=== PATIENT | male | born 1995 | race African-American/Black ===

== ENCOUNTER 2019-02-17 12:19 | Emergency (ER) | payer OTHER ==
[~2019-02-17] VITALS: Ht 188 cm; Wt 138.3 kg
--- NOTE | 2019-02-17 12:56 | PHYS DOC ---
Past Medical History Past Medical History: No Pertinent History Past Surgical History: No Surgical History Alcohol Use: None Drug Use: None Adult General Chief Complaint Chief Complaint: HYPERGLYCEMIA HPI HPI Patient is a 23-year-old previously healthy male who presents with elevated blood sugar. Patient states for the last week he's noticed that he is had polyuria. 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 He does not think he's been drinking any more fluid than usual. He denies any fever chills or sweats. He's had no other recent illnesses. He denies any nausea or vomiting. He does not know of any childhood type I diabetics in his family. He does have some type II diabetics in older relatives.[] Review of Systems Review of Systems Constitutional: Denies fever or chills [] Eyes: Denies change in visual acuity, redness, or eye pain [] HENT: Denies nasal congestion or sore throat [] Respiratory: Denies cough or shortness of breath [] Cardiovascular: No additional information not addressed in HPI [] GI: Denies abdominal pain, nausea, vomiting, bloody stools or diarrhea [] : Denies dysuria or hematuria [] Musculoskeletal: Denies back pain or joint pain [] Integument: Denies rash or skin lesions [] Neurologic: Denies headache, focal weakness or sensory changes [] Endocrine: Reports polyuria[] All other systems were reviewed and found to be within normal limits, except as documented in this note. Allergies Allergies Allergies Coded Allergies Type Severity Reaction Last Updated Verified No Known Drug Allergies 02/17/19 No Physical Exam Physical Exam Constitutional: Well developed, well nourished, no acute distress, non-toxic appearance, obese. [] HENT: Normocephalic, atraumatic, bilateral external ears normal, oropharynx moist, no oral exudates, nose normal. [] Eyes: PERRLA, EOMI, conjunctiva normal, no discharge. [] Neck: Normal range of motion, no tenderness, supple, no stridor. [] Cardiovascular:Heart rate regular rhythm, no murmur [] Lungs & Thorax: Bilateral breath sounds clear to auscultation [] Abdomen: Bowel sounds normal, soft, no tenderness, no masses, no pulsatile masses. [] Skin: Warm, dry, no erythema, no rash. [] Back: No tenderness, no CVA tenderness. [] Extremities: No tenderness, no cyanosis, no clubbing, ROM intact, no edema. [] Neurologic: Alert and oriented X 3, normal motor function, normal sensory function, no focal deficits noted. [] Psychologic: Affect normal, judgement normal, mood normal. [] Current Patient Data Vital Signs Vital Signs Date Time Temp Pulse Resp B/P (MAP) Pulse Ox O2 Delivery O2 Flow Rate FiO2 02/17/19 12:30 97.7 92 18 175/84 (114) 98 Room Air 97.7 Lab Values Laboratory Tests Test 02/17/19 12:36 02/17/19 12:47 Glucose (Fingerstick) 369 mg/dL (70-99) H White Blood Count 4.9 x10^3/uL (4.0-11.0) Red Blood Count 5.35 x10^6/uL (4.30-5.70) Hemoglobin 14.9 g/dL (13.0-17.5) Hematocrit 44.3 % (39.0-53.0) Mean Corpuscular Volume 83 fL (79-100) Mean Corpuscular Hemoglobin 28 pg (25-35) Mean Corpuscular Hemoglobin Concent 34 g/dL (31-37) Red Cell Distribution Width 13.1 % (11.5-14.5) Platelet Count 271 x10^3/uL (140-400) Neutrophils (%) (Auto) 48 % (31-73) Lymphocytes (%) (Auto) 37 % (24-48) Monocytes (%) (Auto) 8 % (0-9) Eosinophils (%) (Auto) 7 % (0-3) H Basophils (%) (Auto) 1 % (0-3) Neutrophils # (Auto) 2.3 x10^3/uL (1.8-7.7) Lymphocytes # (Auto) 1.8 x10^3/uL (1.0-4.8) Monocytes # (Auto) 0.4 x10^3/uL (0.0-1.1) Eosinophils # (Auto) 0.3 x10^3/uL (0.0-0.7) Basophils # (Auto) 0.0 x10^3/uL (0.0-0.2) Sodium Level 134 mmol/L (136-145) L Potassium Level 4.2 mmol/L (3.5-5.1) Chloride Level 96 mmol/L (98-107) L Carbon Dioxide Level 26 mmol/L (21-32) Anion Gap 12 (6-14) Blood Urea Nitrogen 10 mg/dL (8-26) Creatinine 1.4 mg/dL (0.7-1.3) H Estimated GFR (Cockcroft-Gault) 76.7 Glucose Level 376 mg/dL (70-99) H Calcium Level 10.1 mg/dL (8.5-10.1) Laboratory Tests 02/17/19 12:47 Laboratory Tests 02/17/19 12:47 EKG EKG [] Radiology/Procedures Radiology/Procedures [] Course & Med Decision Making Course & Med Decision Making Pertinent Labs and Imaging studies reviewed. (See chart for details) [ED course: Patient is a 23-year-old male who I suspect by body habitus is a type II diabetic. I'll start him on metformin as an outpatient. I've encouraged him strongly to follow with primary care physician in the next 1-2 days.] Dragon Disclaimer Dragon Disclaimer This electronic medical record was generated, in whole or in part, using a voice recognition dictation system. Departure Departure Impression: Primary Impression: Diabetes mellitus Disposition: 01 HOME, SELF-CARE Condition: STABLE Referrals: UNKNOWN PCP NAME (PCP) Patient Instructions: Diabetes Meal Planning Guide, Diabetes and Exercise- SportsMed, Diabetes, FAQs, Form - Daily Diabetes Record, Gestational Diabetes Mellitus, Type 2 Diabetes Mellitus, Adult Additional Instructions: It is extremely important that you follow with her primary care physician in the next 5-7 days. It is a must that she take your medication as directed. Scripts Lisinopril (LISINOPRIL) 10 Mg Tablet 1 TAB PO DAILY, #90 TAB 1 Refill Prov: FRANCISCA ALBARADO DO 02/17/19 Metformin Hcl (METFORMIN HCL) 500 Mg Tablet 500 MG PO BIDWMEALS for ANTI-DIABETIC, #120 TAB 0 Refills Prov: FRANCISCA ALBARADO DO 02/17/19 Problem Qualifiers Primary Impression: Diabetes mellitus Diabetes mellitus type: type 2 Diabetes mellitus general contractor insulin use: without general contractor use Diabetes mellitus complication status: without complication Qualified Codes: E11.9 - Type 2 diabetes mellitus without complications FRANCISCA ALBARADO DO Feb 17, 2019 12:56
[2019-02-17 13:01] LABS: BASO % 1 % (0-3); EOS # 0.3 x10^3/uL (0.0-0.7); EOS % 7 % (0-3); HEMATOCRIT 44.3 % (39.0-53.0); HEMOGLOBIN 14.9 g/dL (13.0-17.5); LYMPH # 1.8 x10^3/uL (1.0-4.8); LYMPH % 37 % (24-48); MEAN CORPUSCULAR HEMOGLOBIN 28 pg (25-35); MEAN CORPUSCULAR HGB CONC 34 g/dL (31-37); MEAN CORPUSCULAR VOLUME 83 fL (79-100); MONO # 0.4 x10^3/uL (0.0-1.1); MONO % 8 % (0-9); NEUT # 2.3 x10^3/uL (1.8-7.7); NEUT % 48 % (31-73); PLATELET COUNT 271 x10^3/uL (140-400); RED BLOOD COUNT 5.35 x10^6/uL (4.30-5.70); RED CELL DISTRIBUTION WIDTH 13.1 % (11.5-14.5); WHITE BLOOD COUNT 4.9 x10^3/uL (4.0-11.0)
[2019-02-17 13:14] LABS: CALCIUM 10.1 mg/dL (8.5-10.1); CREATININE 1.4 mg/dL (0.7-1.3); GFR 76.7; POTASSIUM 4.2 mmol/L (3.5-5.1)
[2019-02-17 13:15] LABS: BILIRUBIN,URINE NEGATIVE (NEG); CLARITY,URINE CLEAR; COLOR,URINE YELLOW; NITRITE,URINE NEGATIVE (NEG); PROTEIN,URINE 30 mg/dL (NEG-TRACE)
[2019-02-17 13:22] LABS: BACTERIA,URINE 0 /HPF (0-FEW); RBC,URINE 0 /HPF (0-2); WBC,URINE 0 /HPF (0-4)
[2019-02-17] MEDS ORDERED: METF500T16 PO (13:23)
[2019-02-17] MEDS ORDERED: LISI10TA2 PO (13:23)
[2019-02-17 13:31] VITALS: BP 138/81
== END 2019-02-17 13:34 | disposition home or self-care (01) ==
LOC: ER 12:19
DX: E11.65 Type 2 diabetes mellitus with hyperglycemia (principal)
CPT/HCPCS: 36415; 80048; 81001; 82962; 85025; 99284

== ENCOUNTER 2019-03-08 10:48 | Emergency (ER) | payer OTHER ==
[~2019-03-08] VITALS: Ht 188 cm; Wt 138.3 kg
[~2019-03-08 10:48] MED LIST: LISI10TA2 PO; METF500T16 PO
[2019-03-08 11:10] VITALS: BP 138/81
--- NOTE | 2019-03-08 11:15 | PHYS DOC ---
Past Medical History Past Medical History: No Pertinent History Past Surgical History: No Surgical History Alcohol Use: None Drug Use: None Adult General Chief Complaint Chief Complaint: TOE PROBLEM [facility] HPI Patient is a 23 year old male who presents with right great toe pain. This been ongoing since yesterday, as the patient was working on his car and hit his great toe against cardiac. The patient rates his pain a 7 out of 10 in severity and states sharp and throbbing. The patient complains the toe with hydrogen peroxide after the incident, and had his toe wrapped. Review of Systems Review of Systems Constitutional: Denies fever or chills [] Eyes: Denies change in visual acuity, redness, or eye pain [] HENT: Denies nasal congestion or sore throat [] Respiratory: Denies cough or shortness of breath [] Cardiovascular: No additional information not addressed in HPI [] GI: Denies abdominal pain, nausea, vomiting, bloody stools or diarrhea [] : Denies dysuria or hematuria [] Musculoskeletal: R 1st digit pain. Integument: Denies rash or skin lesions [] Neurologic: Denies headache, focal weakness or sensory changes [] Endocrine: Denies polyuria or polydipsia [] Complete systems were reviewed and found to be within normal limits, except as documented in this note. Allergies Allergies Allergies Coded Allergies Type Severity Reaction Last Updated Verified No Known Drug Allergies 02/17/19 No Physical Exam Physical Exam Constitutional: Well developed, well nourished, no acute distress, non-toxic appearance. [] HENT: Normocephalic, atraumatic, bilateral external ears normal, oropharynx moist, no oral exudates, nose normal. [] Eyes: PERRLA, EOMI, conjunctiva normal, no discharge. [] Neck: Normal range of motion, no tenderness, supple, no stridor. [] Cardiovascular:Heart rate regular rhythm, no murmur [] Lungs & Thorax: Bilateral breath sounds clear to auscultation [] Abdomen: Bowel sounds normal, soft, no tenderness, no masses, no pulsatile masses. [] Skin: Warm, dry, no erythema, no rash. [] Back: No tenderness, no CVA tenderness. [] Extremities: R great toe bruising to toenail. Nail is attached with dry blood underneath. Neurologic: Alert and oriented X 3, normal motor function, normal sensory function, no focal deficits noted. [] Psychologic: Affect normal, judgement normal, mood normal. [] EKG EKG [] Radiology/Procedures Radiology/Procedures [] Course & Med Decision Making Course & Med Decision Making Pertinent Labs and Imaging studies reviewed. (See chart for details) Discussed with patient that the nail is bruised and is still attached although slightly loose at the top. Discussed continuing to keep wrapped and clean and let the bruise heel. Patient is agreeable to this plan. Dragon Disclaimer Dragon Disclaimer This electronic medical record was generated, in whole or in part, using a voice recognition dictation system. Departure Departure Impression: Primary Impression: Toe pain Disposition: HOME, SELF-CARE Condition: STABLE Referrals: NO PCP (PCP) Additional Instructions: Thank you for visiting [facility]. We appreciate you trusting us with your care. If any additional problems come up don't hesitate to return to visit us. Please follow up with your primary care provider so they can plan additional care if needed and know about the problem that you had. If symptoms worsen come back to the Emergency Department. Any concerning symptoms that start such as chest pain, shortness of air, weakness or numbness on one side of the body, running high fevers or any other concerning symptoms return to the ER. Problem Qualifiers Primary Impression: Toe pain Laterality: right Qualified Codes: M79.674 - Pain in right toe(s) KARL SETHI APRN Mar 08, 2019 11:15
== END 2019-03-08 11:30 | disposition home or self-care (01) ==
LOC: ER 10:48
DX: S90.211A Contusion of right great toe with damage to nail, initial encounter (principal); W22.8XXA Striking against or struck by other objects, initial encounter; Y93.89 Activity, other specified; Y92.89 Other specified places as the place of occurrence of the external cause; Y99.8 Other external cause status
CPT/HCPCS: 99281

== ENCOUNTER 2019-04-26 10:25 | Inpatient (IN) | payer OTHER ==
[~2019-04-26] VITALS: Ht 188 cm; Wt 109.3 kg
[2019-04-26] VITALS (7 sets, daily range): BP systolic 118–168; BP diastolic 67–95
[2019-04-26] MEDS ORDERED: INSULIN,REGULAR 150 UNIT DRIP 150 ML IV ONE (10:45)
[2019-04-26] MEDS ORDERED: MORPHINE SULFATE 2 MG/ML VIAL. IV ONE (10:45)
[2019-04-26] MEDS ORDERED: IV NORMAL SALINE 1000ML BAG 1,000 ML IV ONE ×4 (10:45→12:15)
--- NOTE | 2019-04-26 10:51 | PHYS DOC ---
Past Medical History Past Medical History: Diabetes-Type II Past Surgical History: No Surgical History Alcohol Use: None Drug Use: None Adult General HPI HPI Patient is a 23-year-old male who presents to the emergency department for evaluation. He was diagnosed with diabetes, type II, during an ER visit in January. He was started on metformin during the ER visit, and in January was switched to Januvia at his follow-up at [facility]. He states he has been taking the medication intermittently but not regularly. He reports polyuria and polydipsia over the past several weeks, and awakened yesterday morning with nausea and vomiting, and does have some rib and lower back pain today. He is noted to be tachycardic, appears dehydrated, and EMS reported a blood sugar that read "high". He denies any significant shortness of breath. He does have some pleuritic rib pain. He is noted to be Kussmaul breathing upon arrival. He has not had any diarrhea or abdominal pain. There are no alleviating or exacerbating factors to his symptoms otherwise. Review of Systems Review of Systems Constitutional: Denies fever or chills [] Eyes: Denies change in visual acuity, redness, or eye pain [] HENT: Denies nasal congestion or sore throat [] Respiratory: Denies cough or shortness of breath [] Cardiovascular: No additional information not addressed in HPI [] GI: Denies abdominal pain, bloody stools or diarrhea [] : Denies dysuria or hematuria [] Musculoskeletal: Denies back pain or joint pain, other than as noted in the history of present illness [] Integument: Denies rash or skin lesions [] Neurologic: Denies headache, focal weakness or sensory changes [] Endocrine: Reports polyuria and polydipsia [] All other systems were reviewed and found to be within normal limits, except as documented in this note. Current Medications Current Medications Current Medications Medications (Trade) Dose Ordered Sig/Osbaldo Start Time Stop Time Status Last Admin Dose Admin Insulin Human Regular 150 ml @ 0 mls/hr 1X ONCE 04/26/19 10:45 04/26/19 10:46 DC 04/26/19 11:00 7 MLS/HR Morphine Sulfate (Morphine Sulfate) 4 mg 1X ONCE 04/26/19 10:45 04/26/19 10:46 DC 04/26/19 11:20 4 MG Sodium Chloride 1,000 ml @ 1,000 mls/hr 1X ONCE 04/26/19 12:15 04/26/19 13:14 Allergies Allergies Allergies Coded Allergies Type Severity Reaction Last Updated Verified No Known Drug Allergies 02/17/19 No Physical Exam Physical Exam PHYSICAL EXAM: CONSTITUTIONAL: Well developed, well nourished HEAD: normocephalic, atraumatic EENT: PERRL, EOMI. Conjunctivae normal color, sclerae non-icteric; dry mucous membranes. NECK: Supple, non-tender; no meningismus. LUNGS: Lungs CTA, Kussmaul respirations noted. Normal air movement. HEART: Regular tachycardia, no murmur CHEST: No deformity; non-tender ABDOMEN: The abdomen is soft, and non-tender, no masses or bruits. EXTREM: Normal ROM; no deformity, no calf tenderness. Normal pulses palpable in all extremities. There is no pedal edema. SKIN: No rash; no diaphoresis NEURO: Alert; normal speech and cognition; CN's grossly intact; strength grossly intact without focal deficit. BACK: No CVA TTP.There is no bony tenderness to palpation of the thoracic or lumbar spine. Current Patient Data Vital Signs Vital Signs Date Time Temp Pulse Resp B/P (MAP) Pulse Ox O2 Delivery O2 Flow Rate FiO2 04/26/19 11:20 32 100 Room Air 04/26/19 10:30 97.5 142 153/98 (116) 97.5 Lab Values Laboratory Tests Test 04/26/19 10:50 White Blood Count 15.3 x10^3/uL (4.0-11.0) H Red Blood Count 6.09 x10^6/uL (4.30-5.70) H Hemoglobin 16.7 g/dL (13.0-17.5) Hematocrit 54.0 % (39.0-53.0) H Mean Corpuscular Volume 89 fL (79-100) Mean Corpuscular Hemoglobin 28 pg (25-35) Mean Corpuscular Hemoglobin Concent 31 g/dL (31-37) Red Cell Distribution Width 14.2 % (11.5-14.5) Platelet Count 269 x10^3/uL (140-400) Neutrophils (%) (Auto) 88 % (31-73) H Lymphocytes (%) (Auto) 6 % (24-48) L Monocytes (%) (Auto) 5 % (0-9) Eosinophils (%) (Auto) 0 % (0-3) Basophils (%) (Auto) 0 % (0-3) Neutrophils # (Auto) 13.4 x10^3/uL (1.8-7.7) H Lymphocytes # (Auto) 1.0 x10^3/uL (1.0-4.8) Monocytes # (Auto) 0.8 x10^3/uL (0.0-1.1) Eosinophils # (Auto) 0.0 x10^3/uL (0.0-0.7) Basophils # (Auto) 0.0 x10^3/uL (0.0-0.2) Segmented Neutrophils % 61 % (35-66) Band Neutrophils % 29 % (0-9) H Lymphocytes % 7 % (24-48) L Monocytes % 3 % (0-10) Platelet Estimate Adequate (ADEQUATE) Large Platelets Few D-Dimer (Megan) 0.40 ug/mlFEU (0.00-0.50) Sodium Level 126 mmol/L (136-145) L Potassium Level 6.2 mmol/L (3.5-5.1) *H Chloride Level 83 mmol/L (98-107) L Carbon Dioxide Level < 5 mmol/L (21-32) *L Anion Gap (6-14) Blood Urea Nitrogen 32 mg/dL (8-26) H Creatinine 2.7 mg/dL (0.7-1.3) H Estimated GFR (Cockcroft-Gault) 35.9 BUN/Creatinine Ratio 12 (6-20) Glucose Level 837 mg/dL (70-99) *H Calcium Level 10.1 mg/dL (8.5-10.1) Magnesium Level 2.6 mg/dL (1.8-2.4) H Total Bilirubin 0.7 mg/dL (0.2-1.0) Aspartate Amino Transferase (AST) 26 U/L (15-37) Alanine Aminotransferase (ALT) 49 U/L (16-63) Alkaline Phosphatase 119 U/L (46-116) H Troponin I Quantitative < 0.017 ng/mL (0.000-0.055) IY-Cnt-Q-Type Natriuretic Peptide 27 pg/mL (0-124) Total Protein 9.1 g/dL (6.4-8.2) H Albumin 4.5 g/dL (3.4-5.0) Albumin/Globulin Ratio 1.0 (1.0-1.7) Lipase 330 U/L (73-393) Acetone Level Sm pos (NEG) Laboratory Tests 04/26/19 10:50 Laboratory Tests 04/26/19 10:50 EKG EKG Sinus tachycardia at a rate of 143 beats for minute, normal axis, normal intervals, nonspecific ST/T changes are present with prominent/peaked T waves present.[] Radiology/Procedures Radiology/Procedures PROCEDURE: PORTABLE CHEST 1V Examination: PORTABLE CHEST 1V History: Hyperglycemia, chest pain Comparison/Correlation: None Findings: Portable upright frontal view of the chest was obtained. Heart size and pulmonary vessels are normal. No infiltrate or pleural effusion. No pneumothorax. Limited pulmonary infiltration noted. Bony structures are unremarkable. Impression: No active disease. [] Course & Med Decision Making Course & Med Decision Making Pertinent Labs and Imaging studies reviewed. (See chart for details) []CRITICAL CARE TIME: 45 Minutes, excluding any procedures and care of other patients. The patient's condition remains stable. I spoke with the hospitalist, who accepted the patient to the hospital for further evaluation and treatment. His hyperkalemia will be treated with IV hydration and insulin, and his renal dysfunction will be treated with aggressive IV hydration. The patient be admitted to the ICU. Dragon Disclaimer Dragon Disclaimer This electronic medical record was generated, in whole or in part, using a voice recognition dictation system. Departure Departure Impression: Primary Impression: Diabetic ketoacidosis Disposition: ADMITTED INPATIENT Admitting Physician: VANDANA Condition: CRITICAL Referrals: NO PCP (PCP) JESSICA DOWNING MD Apr 26, 2019 10:51
[2019-04-26 11:00] LABS: BASO % 0 % (0-3); EOS % 0 % (0-3); HEMOGLOBIN 16.7 g/dL (13.0-17.5); LYMPH % 6 % (24-48); MEAN CORPUSCULAR HEMOGLOBIN 28 pg (25-35); MEAN CORPUSCULAR HGB CONC 31 g/dL (31-37); MEAN CORPUSCULAR VOLUME 89 fL (79-100); MONO # 0.8 x10^3/uL (0.0-1.1); MONO % 5 % (0-9); NEUT # 13.4 x10^3/uL (1.8-7.7); NEUT % 88 % (31-73); PLATELET COUNT 269 x10^3/uL (140-400); RED BLOOD COUNT 6.09 x10^6/uL (4.30-5.70); RED CELL DISTRIBUTION WIDTH 14.2 % (11.5-14.5); WHITE BLOOD COUNT 15.3 x10^3/uL (4.0-11.0)
--- NOTE | 2019-04-26 11:17 | RAD ---
Examination: PORTABLE CHEST 1V History: Hyperglycemia, chest pain Comparison/Correlation: None Findings: Portable upright frontal view of the chest was obtained. Heart size and pulmonary vessels are normal. No infiltrate or pleural effusion. No pneumothorax. Limited pulmonary infiltration noted. Bony structures are unremarkable. Impression: No active disease. Electronically signed by: Maik Singh MD (04/26/2019 11:13 AM) [facility]
[2019-04-26 11:34] LABS: ALBUMIN 4.5 g/dL (3.4-5.0); ALK PHOS 119 U/L (46-116); ALT (SGPT) 49 U/L (16-63); AST (SGOT) 26 U/L (15-37); BLOOD UREA NITROGEN 32 mg/dL (8-26); BUN/CREATININE RATIO 12 (6-20); CALCIUM 10.1 mg/dL (8.5-10.1); CHLORIDE 83 mmol/L (98-107); CREATININE 2.7 mg/dL (0.7-1.3); GFR 35.9; LIPASE 330 U/L (73-393); MAGNESIUM 2.6 mg/dL (1.8-2.4); SODIUM 126 mmol/L (136-145); TOTAL BILIRUBIN 0.7 mg/dL (0.2-1.0); TOTAL PROTEIN 9.1 g/dL (6.4-8.2)
[2019-04-26 11:51] LABS: % BANDS 29 % (0-9); % LYMPHS 7 % (24-48); % MONOS 3 % (0-10); % SEGS 61 % (35-66); PLT ESTIMATE ADEQUATE (ADEQUATE)
[2019-04-26 12:00] LABS: GLUCOSE 837 mg/dL (70-99); POTASSIUM 6.2 mmol/L (3.5-5.1)
[2019-04-26 12:01] LABS: CARBON DIOXIDE < 5 mmol/L (21-32)
[2019-04-26 12:59] LABS: BASE EXCESS ABG -24 mmol/L (-3-3); HCO3 ABG 3 mmol/L (21-28); PO2 ABG 124 mmHg (85-108); SAT O2 ABG 97 % (92-99)
[2019-04-26 13:01] LABS: FIO2 ABG 21; PCO2 ABG < 15 mmHg (35-46)
[2019-04-26] MEDS ORDERED: cefTRIAXone IV Push 1 GM VIAL. IVP ONE (14:30)
--- NOTE | 2019-04-26 15:08 | HP ---
ADMIT DATE: 04/26/2019 CHIEF COMPLAINT: Polyuria, polydipsia, weakness, nausea, vomiting, weight loss. HISTORY OF PRESENT ILLNESS: The patient is a pleasant 23-year-old male who presented with the above chief complaints. Basically, he was recently diagnosed with new onset diabetes and was placed on some oral meds and told he really did not check his sugars and that he would be fine. He presents to our ER today. He appears to be in DKA. I discussed the case with ER physician. We are going to put him on a DKA protocol. His glucose is also 837 and he has elevated anion gap. PAST MEDICAL HISTORY: Recent diagnosis of new diabetes, noncompliance. ALLERGIES: None. FAMILY HISTORY: Diabetes. SOCIAL HISTORY: Does not drink, smoke or take drugs. He works at a [employer] on the [employer]. MEDICATIONS: Reviewed, please refer to the MRAD. REVIEW OF SYSTEMS: GENERAL: He complains of weight loss. SKIN: No bruising, hair changes or rashes. EYES: No blurred, double or loss of vision. NOSE AND THROAT: No history of nosebleeds, hoarseness or sore throat. HEART: No history of palpitations, chest pain or shortness of breath on exertion. LUNGS: Denies cough, hemoptysis, wheezing or shortness of breath. GASTROINTESTINAL: Denies changes in appetite, nausea, vomiting, diarrhea or constipation. GENITOURINARY: He complains of polyuria. NEUROLOGIC: Denies history of numbness, tingling, tremor or weakness. PSYCHIATRIC: No history of panic, anxiety or depression. ENDOCRINE: He complains of excessive thirst. EXTREMITIES: Denies muscle weakness, joint pain, pain on walking or stiffness. PHYSICAL EXAMINATION: VITALS: Within normal limits and are stable. GENERAL: No apparent distress. Alert and oriented. HEENT: Head is normocephalic, atraumatic, pupils were equally round and reactive to light and accommodation. NECK: Supple, no JVD, no thyromegaly was noted. LUNGS: Tachypneic. HEART: RRR, S1, S2 present. Peripheral pulses intact, no obvious murmurs were noted. ABDOMEN: Soft, nontender. Positive bowel sounds no organomegaly, normal bowel sounds. EXTREMITIES: Without any cyanosis, clubbing, or edema. Pedal pulses intact, Homans sign is negative. NEUROLOGIC: Normal speech, normal tone. A and O x3, moves all extremities, no obvious focal deficits. PSYCHIATRIC: Depressed and anxious. SKIN: No ulcerations or rashes, good skin turgor, no jaundice. VASCULAR: Good capillary refill, neurovascular bundle appears to be intact. LABORATORY DATA: White count is 15, hemoglobin 16, platelets 269. Electrolytes: Sodium 126, potassium 6.2, chloride 83, bicarbonate less than 5, BUN 32, creatinine 2.7, glucose 837. Troponin is 0. D-dimer 0.4. ABG shows a pH of 7.11. ASSESSMENT AND PLAN: Severe diabetic ketoacidosis with elevated anion gap metabolic acidosis, leukocytosis, dehydration, and weight loss. The patient has been admitted for DKA protocol. We will also give him IV antibiotics, IV fluids, IV insulin. ICU monitoring. Diabetic education. PROGNOSIS: Guarded. ANNALEE DOTSON DO DR: GIRISH/clement JOB#: [id number] / [id number]
[2019-04-26] MEDS ORDERED: INSULIN REGULAR VIAL 150 UNIT in 0.9 % SODIUM CHLORIDE 150ML 150 ML IV PRN (16:15)
[2019-04-26] MEDS ORDERED: POTASSIUM CHLORIDE 10MEQ 100 ML IV PRN ×3 (16:15)
--- NOTE | 2019-04-26 16:15 | NUR ---
Patient admitted to room 114 at 1545. Patient a/o, able to answer admission questions. No valuables on patient, besides cell phone. Patient's mom, girlfriend in hospital. RN called and spoke with Dr. Rich regarding DKA order set. Order received for Morphine 2mg Q2 hrs. Order received to start DKA protocol. New labs drawn-- awaiting results. Patient's GF, Diamante, at bedside. See assessments.
[2019-04-26 16:34] LABS: HEMATOCRIT 50.1 % (39.0-53.0); HEMOGLOBIN 15.8 g/dL (13.0-17.5); RED BLOOD COUNT 5.79 x10^6/uL (4.30-5.70); RED CELL DISTRIBUTION WIDTH 13.9 % (11.5-14.5); WHITE BLOOD COUNT 15.3 x10^3/uL (4.0-11.0)
[2019-04-26] MEDS ORDERED: MORPHINE SULFATE 2 MG/ML VIAL. ONE (16:37)
[2019-04-26] MEDS: IV NORMAL SALINE 1000ML BAG 1,000 ML IV SCH ×2 (16:41→20:07)
[2019-04-26 16:59] LABS: ALBUMIN 3.9 g/dL (3.4-5.0); ALBUMIN/GLOBULIN RATIO 0.8 (1.0-1.7); CREATININE 2.3 mg/dL (0.7-1.3); GFR 43.2; POTASSIUM 4.9 mmol/L (3.5-5.1); TOTAL BILIRUBIN 0.6 mg/dL (0.2-1.0); TOTAL PROTEIN 8.8 g/dL (6.4-8.2)
[2019-04-26] MEDS ORDERED: SITA100T PO (18:36)
--- NOTE | 2019-04-26 18:40 | NUR ---
RN called and spoke with Dr. Fairbanks-- notified of lab values, including criticals. Order received to continue to follow DKA protocol, no changes made. Repeat labs at 1999.
[2019-04-26 19:52] LABS: HEMATOCRIT 46.8 % (39.0-53.0); HEMOGLOBIN 15.3 g/dL (13.0-17.5); RED BLOOD COUNT 5.55 x10^6/uL (4.30-5.70); RED CELL DISTRIBUTION WIDTH 13.6 % (11.5-14.5); WHITE BLOOD COUNT 14.2 x10^3/uL (4.0-11.0)
[2019-04-26 20:08] LABS: ALBUMIN 3.7 g/dL (3.4-5.0); ALBUMIN/GLOBULIN RATIO 0.8 (1.0-1.7); CALCIUM 9.1 mg/dL (8.5-10.1); CREATININE 1.7 mg/dL (0.7-1.3); GFR 61.3; POTASSIUM 4.3 mmol/L (3.5-5.1); TOTAL BILIRUBIN 0.6 mg/dL (0.2-1.0); TOTAL PROTEIN 8.3 g/dL (6.4-8.2)
[2019-04-26] MEDS: SODIUM PHOSPHATE 10 MMOL in IV DEXTROSE 5% 250 ML IV SCH ×2 (20:30→21:25)
[2019-04-26] MEDS ORDERED: IV 1/2 NORMAL SALINE 1,000 ML IV PRN (20:30)
[2019-04-27] VITALS (10 sets, daily range): BP systolic 89–158; BP diastolic 38–94
[2019-04-27 00:47] LABS: CREATININE 1.6 mg/dL (0.7-1.3); GFR 65.7; MAGNESIUM 2.2 mg/dL (1.8-2.4); POTASSIUM 3.8 mmol/L (3.5-5.1)
[2019-04-27] MEDS: SODIUM PHOSPHATE 10 MMOL in IV DEXTROSE 5% 250 ML IV SCH (01:45)
[2019-04-27] MEDS: POTASSIUM CHLORIDE 10MEQ 100 ML IV SCH ×10 (01:46→17:43)
[2019-04-27] MEDS: IV DEXTROSE 5 %-0.45 % NACL 1,000 ML IV SCH ×3 (02:14→11:03)
[2019-04-27 05:39] LABS: CALCIUM 8.9 mg/dL (8.5-10.1); CREATININE 1.5 mg/dL (0.7-1.3); GFR 70.8; MAGNESIUM 2.1 mg/dL (1.8-2.4); PHOSPHORUS 1.8 mg/dL (2.6-4.7); POTASSIUM 3.6 mmol/L (3.5-5.1)
--- NOTE | 2019-04-27 06:12 | EKG ---
[facility] [address] [place] [address] Test Date: 2019-04-26 Test Time: 10:54:17 Pat Name: VU PATTON Department: Room: 114 1 Gender: M Ux Consultant: : 1995 Requested By: JESSICA DOWNING Order Number: [id number] Reading MD: Ming Zuluaga MD Measurements Intervals [place] Rate: 143 P: 21 MT: 114 QRS: 45 QRSD: 76 T: 49 QT: 278 QTc: 434 Interpretive Statements SINUS TACHYCARDIA Electronically Signed On 05-09-2019 12:50:01 CDT by Ming Zuluaga MD
[2019-04-27] MEDS ORDERED: SODIUM PHOSPHATE 20 MMOL in IV DEXTROSE 5% 250 ML IV ONE (06:15)
[2019-04-27] MEDS ORDERED: INSULIN REGULAR VIAL 150 UNIT in 0.9 % SODIUM CHLORIDE 150ML 150 ML IV PRN (06:30)
--- NOTE | 2019-04-27 10:26 | PDOC2 ---
CONSULT Date of Consult Date of Consult DATE: 04/27/19 TIME: 10:22 History of Present Illness Reason for Visit: THIS IS A 23 YR OLD WITH A DX OF DM. ADMITTED WITH RECENT COMPLAINTS OF WEAKNESS FOLLOWING DAYS OF INCREASED URINATION AND INCREASED THIRST. HAS NOT BEEN TAKING HIS MEDICATIONS REGULARLY. HAS ALSO HAD SOME NAUSEA AND VOMITING. ON ADMIT NOTED TO BE IN DKA WITH ETHAN, MET ACIDOSIS AND HYPERKALEMIA. ALSO NOTED TO BE TACHYPNE IC Past Medical History Endocrine: Diabetes Past Surgical History Past Surgical History NONE Current Problem List Problem List Problems Medical Problems: (1) Dehydration Status: Acute (2) Diabetic ketoacidosis Status: Acute Current Medications Current Medications Current Medications Sodium Chloride 1,000 ml @ 1,000 mls/hr 1X ONCE IV Last administered on 04/26/19at 11:00; Start 04/26/19 at 10:45; Stop 04/26/19 at 11:44; Status DC Sodium Chloride 1,000 ml @ 1,000 mls/hr 1X ONCE IV Last administered on 04/26/19at 11:56; Start 04/26/19 at 10:45; Stop 04/26/19 at 11:44; Status DC Insulin Human Regular 150 ml @ 0 mls/hr 1X ONCE IV Last administered on 04/26/19at 11:00; Start 04/26/19 at 10:45; Stop 04/26/19 at 10:46; Status DC Morphine Sulfate (Morphine Sulfate) 4 mg 1X ONCE IV Last administered on 04/26/19at 11:20; Start 04/26/19 at 10:45; Stop 04/26/19 at 10:46; Status DC Sodium Chloride 1,000 ml @ 1,000 mls/hr 1X ONCE IV Last administered on 04/26/19at 12:44; Start 04/26/19 at 12:00; Stop 04/26/19 at 12:59; Status DC Sodium Chloride 1,000 ml @ 1,000 mls/hr 1X ONCE IV Last administered on 04/26/19at 13:26; Start 04/26/19 at 12:15; Stop 04/26/19 at 13:14; Status DC Ceftriaxone Sodium (Rocephin) 1 gm Q24H IVP ; Start 04/27/19 at 15:00 Ceftriaxone Sodium (Rocephin) 1 gm ONCE ONCE IVP Last administered on 04/26/19at 15:02; Start 04/26/19 at 14:30; Stop 04/26/19 at 14:31; Status DC Sodium Chloride 1,000 ml @ 250 mls/hr Q4H IV Last administered on 04/26/19at 20:07; Start 04/26/19 at 16:12; Stop 04/26/19 at 23:58; Status DC Insulin Human Regular 150 unit/ Sodium Chloride 151.5 ml @ 0 mls/hr CONT PRN PRN IV PER PROTOCOL Last administered on 04/26/19at 20:31; Start 04/26/19 at 16:15; Stop 04/27/19 at 06:33; Status DC Potassium Chloride/Water 100 ml @ 100 mls/hr PRN Q1HR PRN IV SEE COMMENTS; Start 04/26/19 at 16:15 Potassium Chloride/Water 100 ml @ 100 mls/hr PRN Q1HR PRN IV SEE COMMENTS; Start 04/26/19 at 16:15 Potassium Chloride/Water 100 ml @ 100 mls/hr PRN Q1HR PRN IV SEE COMMENTS; Start 04/26/19 at 16:15 Morphine Sulfate (Morphine Sulfate) 2 mg STK-MED ONCE .ROUTE ; Start 04/26/19 at 16:37; Stop 04/26/19 at 16:37; Status DC Sodium Phosphate 10 mmol/Dextrose 253.3333 ml @ 61.688 m... Q4HRS IV Last administered on 04/27/19at 01:46; Start 04/26/19 at 20:30; Stop 04/27/19 at 03:59; Status DC Sodium Chloride 1,000 ml @ 250 mls/hr PRN Q4HRS PRN IV SEE I/O RECORD Last administered on 04/26/19at 20:31; Start 04/26/19 at 20:30; Stop 04/26/19 at 23:58; Status DC Dextrose/Sodium Chloride 1,000 ml @ 250 mls/hr Q4H IV Last administered on 04/27/19at 07:11; Start 04/27/19 at 00:00 Potassium Chloride/Water 100 ml @ 100 mls/hr Q1H IV Last administered on 04/27/19at 02:22; Start 04/27/19 at 01:15; Stop 04/27/19 at 03:14; Status DC Potassium Chloride/Water 100 ml @ 100 mls/hr Q1H IV Last administered on 04/27/19at 07:35; Start 04/27/19 at 06:15; Stop 04/27/19 at 10:14; Status DC Sodium Phosphate 20 mmol/Dextrose 256.6667 ml @ 64.167 m... 1X ONCE IV Last administered on 04/27/19at 06:31; Start 04/27/19 at 06:15; Stop 04/27/19 at 10:14; Status DC Insulin Human Regular 150 unit/ Sodium Chloride 151.5 ml @ 0 mls/hr CONT PRN IV SEE I/O RECORD; Start 04/27/19 at 06:30 Active Scripts Active Reported Januvia (Sitagliptin Phosphate) 100 Mg Tablet 1 Tab PO DAILY Allergies Allergies: Coded Allergies: No Known Drug Allergies (Unverified , 02/17/19) ROS General: YES: Fatigue, Malaise, Appetite PSYCHOLOGICAL ROS: YES: Anxiety Eyes: Yes Blurry vision HEENT: YES: Heacaches ALLERGY AND IMMUNOLOGY: YES: Seasonal Allergies Gastrointestinal: Yes Nausea, Yes Vomiting Genitourinary: YES Frequency Musculoskeletal: Yes Muscular Weakness Neurological: Yes Weakness Skin: Yes Dry Skin Physical Exam General: Alert, Oriented X3, Cooperative, No acute distress HEENT: Atraumatic, PERRLA, EOMI Lungs: Clear to auscultation Heart: Regular rate, Normal S1 Abdomen: Normal bowel sounds, Soft, No tenderness Extremities: No clubbing Skin: No rashes, No breakdown Neuro: Normal speech, Sensation intact MUSCULOSKELETAL: No joint tenderness, No deformity Vitals VITALS Vital Signs Date Time Temp Pulse Resp B/P (MAP) Pulse Ox O2 Delivery O2 Flow Rate FiO2 04/27/19 08:00 Room Air 04/27/19 06:00 105 15 140/82 (101) 04/27/19 04:00 99.2 99.2 04/26/19 17:30 98 Labs Labs Laboratory Tests Test 04/26/19 10:37 04/26/19 10:50 04/26/19 14:49 04/26/19 15:49 O2 Saturation 97 % (92-99) Arterial Blood pH 7.11 (7.35-7.45) Arterial Blood pCO2 at Patient Temp < 15 mmHg (35-46) Arterial Blood pO2 at Patient Temp 124 mmHg (85-108) Arterial Blood HCO3 3 mmol/L (21-28) Arterial Blood Base Excess -24 mmol/L (-3-3) FiO2 21 White Blood Count 15.3 x10^3/uL (4.0-11.0) Red Blood Count 6.09 x10^6/uL (4.30-5.70) Hemoglobin 16.7 g/dL (13.0-17.5) Hematocrit 54.0 % (39.0-53.0) Mean Corpuscular Volume 89 fL (79-100) Mean Corpuscular Hemoglobin 28 pg (25-35) Mean Corpuscular Hemoglobin Concent 31 g/dL (31-37) Red Cell Distribution Width 14.2 % (11.5-14.5) Platelet Count 269 x10^3/uL (140-400) Neutrophils (%) (Auto) 88 % (31-73) Lymphocytes (%) (Auto) 6 % (24-48) Monocytes (%) (Auto) 5 % (0-9) Eosinophils (%) (Auto) 0 % (0-3) Basophils (%) (Auto) 0 % (0-3) Neutrophils # (Auto) 13.4 x10^3/uL (1.8-7.7) Lymphocytes # (Auto) 1.0 x10^3/uL (1.0-4.8) Monocytes # (Auto) 0.8 x10^3/uL (0.0-1.1) Eosinophils # (Auto) 0.0 x10^3/uL (0.0-0.7) Basophils # (Auto) 0.0 x10^3/uL (0.0-0.2) Segmented Neutrophils % 61 % (35-66) Band Neutrophils % 29 % (0-9) Lymphocytes % 7 % (24-48) Monocytes % 3 % (0-10) Platelet Estimate Adequate (ADEQUATE) Large Platelets Few D-Dimer (Megan) 0.40 ug/mlFEU (0.00-0.50) Sodium Level 126 mmol/L (136-145) Potassium Level 6.2 mmol/L (3.5-5.1) Chloride Level 83 mmol/L (98-107) Carbon Dioxide Level < 5 mmol/L (21-32) Anion Gap (6-14) Blood Urea Nitrogen 32 mg/dL (8-26) Creatinine 2.7 mg/dL (0.7-1.3) Estimated GFR (Cockcroft-Gault) 35.9 BUN/Creatinine Ratio 12 (6-20) Glucose Level 837 mg/dL (70-99) Calcium Level 10.1 mg/dL (8.5-10.1) Magnesium Level 2.6 mg/dL (1.8-2.4) Total Bilirubin 0.7 mg/dL (0.2-1.0) Aspartate Amino Transf (AST/SGOT) 26 U/L (15-37) Alanine Aminotransferase (ALT/SGPT) 49 U/L (16-63) Alkaline Phosphatase 119 U/L (46-116) Troponin I Quantitative < 0.017 ng/mL (0.000-0.055) [id number]-Type Natriuretic Peptide 27 pg/mL (0-124) Total Protein 9.1 g/dL (6.4-8.2) Albumin 4.5 g/dL (3.4-5.0) Albumin/Globulin Ratio 1.0 (1.0-1.7) Lipase 330 U/L (73-393) Acetone Level Sm pos (NEG) Glucose (Fingerstick) 592 mg/dL (70-99) 487 mg/dL (70-99) Test 04/26/19 16:10 04/26/19 16:52 04/26/19 18:31 04/26/19 19:38 White Blood Count 15.3 x10^3/uL (4.0-11.0) Red Blood Count 5.79 x10^6/uL (4.30-5.70) Hemoglobin 15.8 g/dL (13.0-17.5) Hematocrit 50.1 % (39.0-53.0) Mean Corpuscular Volume 87 fL (79-100) Mean Corpuscular Hemoglobin 27 pg (25-35) Mean Corpuscular Hemoglobin Concent 32 g/dL (31-37) Red Cell Distribution Width 13.9 % (11.5-14.5) Platelet Count 235 x10^3/uL (140-400) Sodium Level 138 mmol/L (136-145) Potassium Level 4.9 mmol/L (3.5-5.1) Chloride Level 100 mmol/L (98-107) Carbon Dioxide Level 5 mmol/L (21-32) Anion Gap 33 (6-14) Blood Urea Nitrogen 31 mg/dL (8-26) Creatinine 2.3 mg/dL (0.7-1.3) Estimated GFR (Cockcroft-Gault) 43.2 BUN/Creatinine Ratio 13 (6-20) Glucose Level 539 mg/dL (70-99) Lactic Acid Level 2.5 mmol/L (0.4-2.0) Calcium Level 9.0 mg/dL (8.5-10.1) Magnesium Level 2.6 mg/dL (1.8-2.4) Total Bilirubin 0.6 mg/dL (0.2-1.0) Aspartate Amino Transf (AST/SGOT) 23 U/L (15-37) Alanine Aminotransferase (ALT/SGPT) 46 U/L (16-63) Alkaline Phosphatase 105 U/L (46-116) Total Protein 8.8 g/dL (6.4-8.2) Albumin 3.9 g/dL (3.4-5.0) Albumin/Globulin Ratio 0.8 (1.0-1.7) Glucose (Fingerstick) 470 mg/dL (70-99) 396 mg/dL (70-99) 341 mg/dL (70-99) Test 04/26/19 19:45 04/26/19 20:52 04/26/19 21:57 04/26/19 23:05 White Blood Count 14.2 x10^3/uL (4.0-11.0) Red Blood Count 5.55 x10^6/uL (4.30-5.70) Hemoglobin 15.3 g/dL (13.0-17.5) Hematocrit 46.8 % (39.0-53.0) Mean Corpuscular Volume 84 fL (79-100) Mean Corpuscular Hemoglobin 28 pg (25-35) Mean Corpuscular Hemoglobin Concent 33 g/dL (31-37) Red Cell Distribution Width 13.6 % (11.5-14.5) Platelet Count 217 x10^3/uL (140-400) Sodium Level 141 mmol/L (136-145) Potassium Level 4.3 mmol/L (3.5-5.1) Chloride Level 106 mmol/L (98-107) Carbon Dioxide Level 11 mmol/L (21-32) Anion Gap 24 (6-14) Blood Urea Nitrogen 27 mg/dL (8-26) Creatinine 1.7 mg/dL (0.7-1.3) Estimated GFR (Cockcroft-Gault) 61.3 BUN/Creatinine Ratio 16 (6-20) Glucose Level 375 mg/dL (70-99) Lactic Acid Level 1.4 mmol/L (0.4-2.0) Calcium Level 9.1 mg/dL (8.5-10.1) Phosphorus Level 2.2 mg/dL (2.6-4.7) Magnesium Level 2.5 mg/dL (1.8-2.4) Total Bilirubin 0.6 mg/dL (0.2-1.0) Aspartate Amino Transf (AST/SGOT) 21 U/L (15-37) Alanine Aminotransferase (ALT/SGPT) 44 U/L (16-63) Alkaline Phosphatase 90 U/L (46-116) Total Protein 8.3 g/dL (6.4-8.2) Albumin 3.7 g/dL (3.4-5.0) Albumin/Globulin Ratio 0.8 (1.0-1.7) Glucose (Fingerstick) 345 mg/dL (70-99) 314 mg/dL (70-99) 318 mg/dL (70-99) Test 04/26/19 23:55 04/27/19 00:25 04/27/19 00:59 04/27/19 02:01 Glucose (Fingerstick) 253 mg/dL (70-99) 280 mg/dL (70-99) 259 mg/dL (70-99) 246 mg/dL (70-99) Sodium Level 142 mmol/L (136-145) Potassium Level 3.8 mmol/L (3.5-5.1) Chloride Level 107 mmol/L (98-107) Carbon Dioxide Level 17 mmol/L (21-32) Anion Gap 18 (6-14) Blood Urea Nitrogen 21 mg/dL (8-26) Creatinine 1.6 mg/dL (0.7-1.3) Estimated GFR (Cockcroft-Gault) 65.7 Glucose Level 267 mg/dL (70-99) Calcium Level 9.0 mg/dL (8.5-10.1) Phosphorus Level 1.6 mg/dL (2.6-4.7) Magnesium Level 2.2 mg/dL (1.8-2.4) Test 04/27/19 03:09 04/27/19 04:08 04/27/19 04:25 04/27/19 05:02 Glucose (Fingerstick) 250 mg/dL (70-99) 248 mg/dL (70-99) 244 mg/dL (70-99) Sodium Level 141 mmol/L (136-145) Potassium Level 3.6 mmol/L (3.5-5.1) Chloride Level 106 mmol/L (98-107) Carbon Dioxide Level 19 mmol/L (21-32) Anion Gap 16 (6-14) Blood Urea Nitrogen 18 mg/dL (8-26) Creatinine 1.5 mg/dL (0.7-1.3) Estimated GFR (Cockcroft-Gault) 70.8 Glucose Level 252 mg/dL (70-99) Calcium Level 8.9 mg/dL (8.5-10.1) Phosphorus Level 1.8 mg/dL (2.6-4.7) Magnesium Level 2.1 mg/dL (1.8-2.4) Test 04/27/19 06:10 04/27/19 07:13 04/27/19 08:16 Glucose (Fingerstick) 280 mg/dL (70-99) 241 mg/dL (70-99) 251 mg/dL (70-99) Laboratory Tests Test 04/26/19 10:37 04/26/19 10:50 04/26/19 14:49 04/26/19 15:49 O2 Saturation 97 % (92-99) Arterial Blood pH 7.11 (7.35-7.45) Arterial Blood pCO2 at Patient Temp < 15 mmHg (35-46) Arterial Blood pO2 at Patient Temp 124 mmHg (85-108) Arterial Blood HCO3 3 mmol/L (21-28) Arterial Blood Base Excess -24 mmol/L (-3-3) FiO2 21 White Blood Count 15.3 x10^3/uL (4.0-11.0) Red Blood Count 6.09 x10^6/uL (4.30-5.70) Hemoglobin 16.7 g/dL (13.0-17.5) Hematocrit 54.0 % (39.0-53.0) Mean Corpuscular Volume 89 fL (79-100) Mean Corpuscular Hemoglobin 28 pg (25-35) Mean Corpuscular Hemoglobin Concent 31 g/dL (31-37) Red Cell Distribution Width 14.2 % (11.5-14.5) Platelet Count 269 x10^3/uL (140-400) Neutrophils (%) (Auto) 88 % (31-73) Lymphocytes (%) (Auto) 6 % (24-48) Monocytes (%) (Auto) 5 % (0-9) Eosinophils (%) (Auto) 0 % (0-3) Basophils (%) (Auto) 0 % (0-3) Neutrophils # (Auto) 13.4 x10^3/uL (1.8-7.7) Lymphocytes # (Auto) 1.0 x10^3/uL (1.0-4.8) Monocytes # (Auto) 0.8 x10^3/uL (0.0-1.1) Eosinophils # (Auto) 0.0 x10^3/uL (0.0-0.7) Basophils # (Auto) 0.0 x10^3/uL (0.0-0.2) Segmented Neutrophils % 61 % (35-66) Band Neutrophils % 29 % (0-9) Lymphocytes % 7 % (24-48) Monocytes % 3 % (0-10) Platelet Estimate Adequate (ADEQUATE) Large Platelets Few D-Dimer (Megan) 0.40 ug/mlFEU (0.00-0.50) Sodium Level 126 mmol/L (136-145) Potassium Level 6.2 mmol/L (3.5-5.1) Chloride Level 83 mmol/L (98-107) Carbon Dioxide Level < 5 mmol/L (21-32) Anion Gap (6-14) Blood Urea Nitrogen 32 mg/dL (8-26) Creatinine 2.7 mg/dL (0.7-1.3) Estimated GFR (Cockcroft-Gault) 35.9 BUN/Creatinine Ratio 12 (6-20) Glucose Level 837 mg/dL (70-99) Calcium Level 10.1 mg/dL (8.5-10.1) Magnesium Level 2.6 mg/dL (1.8-2.4) Total Bilirubin 0.7 mg/dL (0.2-1.0) Aspartate Amino Transf (AST/SGOT) 26 U/L (15-37) Alanine Aminotransferase (ALT/SGPT) 49 U/L (16-63) Alkaline Phosphatase 119 U/L (46-116) Troponin I Quantitative < 0.017 ng/mL (0.000-0.055) HU-Ahb-[id number]-Type Natriuretic Peptide 27 pg/mL (0-124) Total Protein 9.1 g/dL (6.4-8.2) Albumin 4.5 g/dL (3.4-5.0) Albumin/Globulin Ratio 1.0 (1.0-1.7) Lipase 330 U/L (73-393) Acetone Level Sm pos (NEG) Glucose (Fingerstick) 592 mg/dL (70-99) 487 mg/dL (70-99) Test 04/26/19 16:10 04/26/19 16:52 04/26/19 18:31 04/26/19 19:38 White Blood Count 15.3 x10^3/uL (4.0-11.0) Red Blood Count 5.79 x10^6/uL (4.30-5.70) Hemoglobin 15.8 g/dL (13.0-17.5) Hematocrit 50.1 % (39.0-53.0) Mean Corpuscular Volume 87 fL (79-100) Mean Corpuscular Hemoglobin 27 pg (25-35) Mean Corpuscular Hemoglobin Concent 32 g/dL (31-37) Red Cell Distribution Width 13.9 % (11.5-14.5) Platelet Count 235 x10^3/uL (140-400) Sodium Level 138 mmol/L (136-145) Potassium Level 4.9 mmol/L (3.5-5.1) Chloride Level 100 mmol/L (98-107) Carbon Dioxide Level 5 mmol/L (21-32) Anion Gap 33 (6-14) Blood Urea Nitrogen 31 mg/dL (8-26) Creatinine 2.3 mg/dL (0.7-1.3) Estimated GFR (Cockcroft-Gault) 43.2 BUN/Creatinine Ratio 13 (6-20) Glucose Level 539 mg/dL (70-99) Lactic Acid Level 2.5 mmol/L (0.4-2.0) Calcium Level 9.0 mg/dL (8.5-10.1) Magnesium Level 2.6 mg/dL (1.8-2.4) Total Bilirubin 0.6 mg/dL (0.2-1.0) Aspartate Amino Transf (AST/SGOT) 23 U/L (15-37) Alanine Aminotransferase (ALT/SGPT) 46 U/L (16-63) Alkaline Phosphatase 105 U/L (46-116) Total Protein 8.8 g/dL (6.4-8.2) Albumin 3.9 g/dL (3.4-5.0) Albumin/Globulin Ratio 0.8 (1.0-1.7) Glucose (Fingerstick) 470 mg/dL (70-99) 396 mg/dL (70-99) 341 mg/dL (70-99) Test 04/26/19 19:45 04/26/19 20:52 04/26/19 21:57 04/26/19 23:05 White Blood Count 14.2 x10^3/uL (4.0-11.0) Red Blood Count 5.55 x10^6/uL (4.30-5.70) Hemoglobin 15.3 g/dL (13.0-17.5) Hematocrit 46.8 % (39.0-53.0) Mean Corpuscular Volume 84 fL (79-100) Mean Corpuscular Hemoglobin 28 pg (25-35) Mean Corpuscular Hemoglobin Concent 33 g/dL (31-37) Red Cell Distribution Width 13.6 % (11.5-14.5) Platelet Count 217 x10^3/uL (140-400) Sodium Level 141 mmol/L (136-145) Potassium Level 4.3 mmol/L (3.5-5.1) Chloride Level 106 mmol/L (98-107) Carbon Dioxide Level 11 mmol/L (21-32) Anion Gap 24 (6-14) Blood Urea Nitrogen 27 mg/dL (8-26) Creatinine 1.7 mg/dL (0.7-1.3) Estimated GFR (Cockcroft-Gault) 61.3 BUN/Creatinine Ratio 16 (6-20) Glucose Level 375 mg/dL (70-99) Lactic Acid Level 1.4 mmol/L (0.4-2.0) Calcium Level 9.1 mg/dL (8.5-10.1) Phosphorus Level 2.2 mg/dL (2.6-4.7) Magnesium Level 2.5 mg/dL (1.8-2.4) Total Bilirubin 0.6 mg/dL (0.2-1.0) Aspartate Amino Transf (AST/SGOT) 21 U/L (15-37) Alanine Aminotransferase (ALT/SGPT) 44 U/L (16-63) Alkaline Phosphatase 90 U/L (46-116) Total Protein 8.3 g/dL (6.4-8.2) Albumin 3.7 g/dL (3.4-5.0) Albumin/Globulin Ratio 0.8 (1.0-1.7) Glucose (Fingerstick) 345 mg/dL (70-99) 314 mg/dL (70-99) 318 mg/dL (70-99) Test 04/26/19 23:55 04/27/19 00:25 04/27/19 00:59 04/27/19 02:01 Glucose (Fingerstick) 253 mg/dL (70-99) 280 mg/dL (70-99) 259 mg/dL (70-99) 246 mg/dL (70-99) Sodium Level 142 mmol/L (136-145) Potassium Level 3.8 mmol/L (3.5-5.1) Chloride Level 107 mmol/L (98-107) Carbon Dioxide Level 17 mmol/L (21-32) Anion Gap 18 (6-14) Blood Urea Nitrogen 21 mg/dL (8-26) Creatinine 1.6 mg/dL (0.7-1.3) Estimated GFR (Cockcroft-Gault) 65.7 Glucose Level 267 mg/dL (70-99) Calcium Level 9.0 mg/dL (8.5-10.1) Phosphorus Level 1.6 mg/dL (2.6-4.7) Magnesium Level 2.2 mg/dL (1.8-2.4) Test 04/27/19 03:09 04/27/19 04:08 04/27/19 04:25 04/27/19 05:02 Glucose (Fingerstick) 250 mg/dL (70-99) 248 mg/dL (70-99) 244 mg/dL (70-99) Sodium Level 141 mmol/L (136-145) Potassium Level 3.6 mmol/L (3.5-5.1) Chloride Level 106 mmol/L (98-107) Carbon Dioxide Level 19 mmol/L (21-32) Anion Gap 16 (6-14) Blood Urea Nitrogen 18 mg/dL (8-26) Creatinine 1.5 mg/dL (0.7-1.3) Estimated GFR (Cockcroft-Gault) 70.8 Glucose Level 252 mg/dL (70-99) Calcium Level 8.9 mg/dL (8.5-10.1) Phosphorus Level 1.8 mg/dL (2.6-4.7) Magnesium Level 2.1 mg/dL (1.8-2.4) Test 04/27/19 06:10 04/27/19 07:13 04/27/19 08:16 Glucose (Fingerstick) 280 mg/dL (70-99) 241 mg/dL (70-99) 251 mg/dL (70-99) Assessment/Plan Assessment/Plan IMP DKA MET ACIDOSIS HYPERKALEMIA ETHAN DUE TO DEHYDRATION PLAN HYDRATION INSULIN DKA PROTOCOL CORRECT ELECTROLYTES NEEDED WILL FOLLOW DORCAS POWERS MD Apr 27, 2019 10:25
[2019-04-27 13:08] LABS: CREATININE 1.2 mg/dL (0.7-1.3); GFR 91.6; POTASSIUM 3.2 mmol/L (3.5-5.1)
[2019-04-27 13:11] LABS: MAGNESIUM 2.1 mg/dL (1.8-2.4); PHOSPHORUS 1.9 mg/dL (2.6-4.7)
[2019-04-27] MEDS ORDERED: SODIUM PHOSPHATE 40 MMOL in IV DEXTROSE 5% 250 ML IV ONE (13:30)
--- NOTE | 2019-04-27 13:39 | PDOC ---
[facility] PROGRESS NOTE Chief Complaint Chief Complaint DKA History of Present Illness History of Present Illness 04/27/19 Pt was seen and examined in the ICU Pt was tired but seems to have turned the corner. His anion gap has decreased to 11. Talked to his girlfriend in the room. She states he has been talking to her and slowly starting to feel better. Consulted nephrology JESUS RN Vitals/I&O Vitals/I&O: Vital Signs Date Time Temp Pulse Resp B/P (MAP) Pulse Ox O2 Delivery O2 Flow Rate FiO2 04/27/19 08:00 Room Air 04/27/19 06:00 105 15 140/82 (101) 04/27/19 04:00 99.2 99.2 04/26/19 17:30 98 I & O 04/26/19 04/26/19 04/27/19 15:00 23:00 07:00 Intake Total 4000 ml 150 ml 1421 ml Output Total 1975 ml 0 ml Balance 4000 ml -1825 ml 1421 ml Physical Exam General: Alert, Oriented X3, Cooperative, No acute distress Heart: Regular rate, Normal S1 Abdomen: Normal bowel sounds, Soft, No tenderness Extremities: No clubbing Skin: No rashes, No breakdown Labs Labs: Laboratory Tests Test 04/26/19 14:49 04/26/19 15:49 04/26/19 16:10 04/26/19 16:52 Glucose (Fingerstick) 592 mg/dL (70-99) 487 mg/dL (70-99) 470 mg/dL (70-99) White Blood Count 15.3 x10^3/uL (4.0-11.0) Red Blood Count 5.79 x10^6/uL (4.30-5.70) Hemoglobin 15.8 g/dL (13.0-17.5) Hematocrit 50.1 % (39.0-53.0) Mean Corpuscular Volume 87 fL (79-100) Mean Corpuscular Hemoglobin 27 pg (25-35) Mean Corpuscular Hemoglobin Concent 32 g/dL (31-37) Red Cell Distribution Width 13.9 % (11.5-14.5) Platelet Count 235 x10^3/uL (140-400) Sodium Level 138 mmol/L (136-145) Potassium Level 4.9 mmol/L (3.5-5.1) Chloride Level 100 mmol/L (98-107) Carbon Dioxide Level 5 mmol/L (21-32) Anion Gap 33 (6-14) Blood Urea Nitrogen 31 mg/dL (8-26) Creatinine 2.3 mg/dL (0.7-1.3) Estimated GFR (Cockcroft-Gault) 43.2 BUN/Creatinine Ratio 13 (6-20) Glucose Level 539 mg/dL (70-99) Lactic Acid Level 2.5 mmol/L (0.4-2.0) Calcium Level 9.0 mg/dL (8.5-10.1) Magnesium Level 2.6 mg/dL (1.8-2.4) Total Bilirubin 0.6 mg/dL (0.2-1.0) Aspartate Amino Transf (AST/SGOT) 23 U/L (15-37) Alanine Aminotransferase (ALT/SGPT) 46 U/L (16-63) Alkaline Phosphatase 105 U/L (46-116) Total Protein 8.8 g/dL (6.4-8.2) Albumin 3.9 g/dL (3.4-5.0) Albumin/Globulin Ratio 0.8 (1.0-1.7) Test 04/26/19 18:31 04/26/19 19:38 04/26/19 19:45 04/26/19 20:52 Glucose (Fingerstick) 396 mg/dL (70-99) 341 mg/dL (70-99) 345 mg/dL (70-99) White Blood Count 14.2 x10^3/uL (4.0-11.0) Red Blood Count 5.55 x10^6/uL (4.30-5.70) Hemoglobin 15.3 g/dL (13.0-17.5) Hematocrit 46.8 % (39.0-53.0) Mean Corpuscular Volume 84 fL (79-100) Mean Corpuscular Hemoglobin 28 pg (25-35) Mean Corpuscular Hemoglobin Concent 33 g/dL (31-37) Red Cell Distribution Width 13.6 % (11.5-14.5) Platelet Count 217 x10^3/uL (140-400) Sodium Level 141 mmol/L (136-145) Potassium Level 4.3 mmol/L (3.5-5.1) Chloride Level 106 mmol/L (98-107) Carbon Dioxide Level 11 mmol/L (21-32) Anion Gap 24 (6-14) Blood Urea Nitrogen 27 mg/dL (8-26) Creatinine 1.7 mg/dL (0.7-1.3) Estimated GFR (Cockcroft-Gault) 61.3 BUN/Creatinine Ratio 16 (6-20) Glucose Level 375 mg/dL (70-99) Lactic Acid Level 1.4 mmol/L (0.4-2.0) Calcium Level 9.1 mg/dL (8.5-10.1) Phosphorus Level 2.2 mg/dL (2.6-4.7) Magnesium Level 2.5 mg/dL (1.8-2.4) Total Bilirubin 0.6 mg/dL (0.2-1.0) Aspartate Amino Transf (AST/SGOT) 21 U/L (15-37) Alanine Aminotransferase (ALT/SGPT) 44 U/L (16-63) Alkaline Phosphatase 90 U/L (46-116) Total Protein 8.3 g/dL (6.4-8.2) Albumin 3.7 g/dL (3.4-5.0) Albumin/Globulin Ratio 0.8 (1.0-1.7) Test 04/26/19 21:57 04/26/19 23:05 04/26/19 23:55 04/27/19 00:25 Glucose (Fingerstick) 314 mg/dL (70-99) 318 mg/dL (70-99) 253 mg/dL (70-99) 280 mg/dL (70-99) Sodium Level 142 mmol/L (136-145) Potassium Level 3.8 mmol/L (3.5-5.1) Chloride Level 107 mmol/L (98-107) Carbon Dioxide Level 17 mmol/L (21-32) Anion Gap 18 (6-14) Blood Urea Nitrogen 21 mg/dL (8-26) Creatinine 1.6 mg/dL (0.7-1.3) Estimated GFR (Cockcroft-Gault) 65.7 Glucose Level 267 mg/dL (70-99) Calcium Level 9.0 mg/dL (8.5-10.1) Phosphorus Level 1.6 mg/dL (2.6-4.7) Magnesium Level 2.2 mg/dL (1.8-2.4) Test 04/27/19 00:59 04/27/19 02:01 04/27/19 03:09 04/27/19 04:08 Glucose (Fingerstick) 259 mg/dL (70-99) 246 mg/dL (70-99) 250 mg/dL (70-99) 248 mg/dL (70-99) Test 04/27/19 04:25 04/27/19 05:02 04/27/19 06:10 04/27/19 07:13 Sodium Level 141 mmol/L (136-145) Potassium Level 3.6 mmol/L (3.5-5.1) Chloride Level 106 mmol/L (98-107) Carbon Dioxide Level 19 mmol/L (21-32) Anion Gap 16 (6-14) Blood Urea Nitrogen 18 mg/dL (8-26) Creatinine 1.5 mg/dL (0.7-1.3) Estimated GFR (Cockcroft-Gault) 70.8 Glucose Level 252 mg/dL (70-99) Calcium Level 8.9 mg/dL (8.5-10.1) Phosphorus Level 1.8 mg/dL (2.6-4.7) Magnesium Level 2.1 mg/dL (1.8-2.4) Glucose (Fingerstick) 244 mg/dL (70-99) 280 mg/dL (70-99) 241 mg/dL (70-99) Test 04/27/19 08:16 04/27/19 10:03 04/27/19 11:16 04/27/19 12:30 Glucose (Fingerstick) 251 mg/dL (70-99) 228 mg/dL (70-99) 185 mg/dL (70-99) 147 mg/dL (70-99) Test 04/27/19 12:40 Sodium Level 141 mmol/L (136-145) Potassium Level 3.2 mmol/L (3.5-5.1) Chloride Level 107 mmol/L (98-107) Carbon Dioxide Level 23 mmol/L (21-32) Anion Gap 11 (6-14) Blood Urea Nitrogen 14 mg/dL (8-26) Creatinine 1.2 mg/dL (0.7-1.3) Estimated GFR (Cockcroft-Gault) 91.6 Glucose Level 157 mg/dL (70-99) Calcium Level 9.0 mg/dL (8.5-10.1) Phosphorus Level 1.9 mg/dL (2.6-4.7) Magnesium Level 2.1 mg/dL (1.8-2.4) Review of Systems Review of Systems: Co weakness Denies any pain Assessment and Plan Assessmemt and Plan Problems Medical Problems: (1) Dehydration Status: Acute (2) Diabetic ketoacidosis Status: Acute Assessment DKA Dehydration DM2 Plan ICU monitoring Encourage PO intake IV fluids Insulin drip 23.8 Glyburide 5mg/day DVT prophylaxis Full code Total time 32 min Comment Review of Relevant I have reviewed the following items francisco (where applicable) has been applied. Medications: Current Medications Medications (Trade) Dose Ordered Sig/Osbaldo Route PRN Reason Start Time Stop Time Status Last Admin Dose Admin Ceftriaxone Sodium (Rocephin) 1 gm ONCE ONCE IVP 04/26/19 14:30 04/26/19 14:31 DC 04/26/19 15:02 Sodium Chloride 1,000 ml @ 250 mls/hr Q4H IV 04/26/19 16:12 04/26/19 23:58 DC 04/26/19 20:07 Insulin Human Regular 150 unit/ Sodium Chloride 151.5 ml @ 0 mls/hr CONT PRN PRN IV PER PROTOCOL 04/26/19 16:15 04/27/19 06:33 DC 04/26/19 20:31 Sodium Phosphate 10 mmol/Dextrose 253.3333 ml @ 61.688 m... Q4HRS IV 04/26/19 20:30 04/27/19 03:59 DC 04/27/19 01:46 Sodium Chloride 1,000 ml @ 250 mls/hr PRN Q4HRS PRN IV SEE I/O RECORD 04/26/19 20:30 04/26/19 23:58 DC 04/26/19 20:31 Dextrose/Sodium Chloride 1,000 ml @ 250 mls/hr Q4H IV 04/27/19 00:00 04/27/19 13:17 DC 04/27/19 11:03 Potassium Chloride/Water 100 ml @ 100 mls/hr Q1H IV 04/27/19 01:15 04/27/19 03:14 DC 04/27/19 02:22 Potassium Chloride/Water 100 ml @ 100 mls/hr Q1H IV 04/27/19 06:15 04/27/19 10:14 DC 04/27/19 10:50 Sodium Phosphate 20 mmol/Dextrose 256.6667 ml @ 64.167 m... 1X ONCE IV 04/27/19 06:15 04/27/19 10:14 DC 04/27/19 06:31 ANNALEE DOTSON III DO Apr 27, 2019 13:39
[2019-04-27] MEDS ORDERED: IV DEXTROSE 5% 250 ML BAG. IV PRN (13:45)
[2019-04-27] MEDS ORDERED: DEXTROSE 50% 25 GM / 50ML DISP.SYRIN. IV PRN (13:45)
[2019-04-27] MEDS ORDERED: INSULIN LISPRO 300 UNITS/3 ML VIAL. SQ ONE (14:45)
[2019-04-27] MEDS: LACTOBACILLUS RHAMNOSUS GG 1 CAPSULE. PO SCH ×2 (14:46→20:51)
[2019-04-27] MEDS: IV DEXTROSE 5% - 0.9 % NACL 1,000 ML IV SCH ×3 (14:48→21:15)
[2019-04-27] MEDS: cefTRIAXone IV Push 1 GM VIAL. IVP SCH (14:48)
[2019-04-27] MEDS: INSULIN GLARGINE SYRINGE. SQ SCH ×2 (14:56→22:48)
--- NOTE | 2019-04-27 15:47 | NUR ---
SS following for discharge planning. SS reviewed pt chart. Pt is from home and is currently on room air. SS will continue to follow for discharge planning.
--- NOTE | 2019-04-27 15:55 | NUR ---
Report given to Adelina on 5S. Pt transferred to room 572 via wheelchair by transportation Addendum: 04/27/19 at 1600 by JENNA LLANES RN Family aware and with pt
--- NOTE | 2019-04-27 16:18 | NUR ---
Patient transferred into room 572. Agree with previous clinical assessment manager.
[2019-04-27] MEDS ORDERED: INSULIN LISPRO 300 UNITS/3 ML VIAL. SQ SCH (16:30)
[2019-04-27] MEDS: glyBURIDE 5 MG TABLET PO SCH (17:42)
[2019-04-27] MEDS: INSULIN LISPRO 300 UNITS/3 ML VIAL. SQ SCH ×2 (17:48→17:49)
--- NOTE | 2019-04-27 22:00 | NUR ---
Patient and mother concerned with his right, great toe, patient apparently had dropped a celestino on it, and his toenail is loose, wants the physician to be informed, The toe and toenail do not appear to be bruised from this insurance underwriter sales's glance. to monitor.
[2019-04-28] MEDS: IV DEXTROSE 5% - 0.9 % NACL 1,000 ML IV SCH ×6 (01:15→21:15)
[2019-04-28 03:00] VITALS: BP 102/59
--- NOTE | 2019-04-28 05:07 | NUR ---
Patient reported to be drinking well, without problems; n/v, iv fluids stopped. monitoring.
[2019-04-28 07:00] VITALS: BP 128/70
[2019-04-28] MEDS: INSULIN LISPRO 300 UNITS/3 ML VIAL. SQ SCH ×6 (08:00→18:41)
--- NOTE | 2019-04-28 09:49 | PDOC ---
PROGRESS NOTES Chief Complaint Chief Complaint DKA History of Present Illness History of Present Illness 04/28/19 Pt was seen and examined Pt was tired but seems to have turned the corner. His anion gap has decreased to 11. slowly starting to feel better. Consulted nephrology DW RN HYDRATION INSULIN DKA PROTOCOL 36 min pt exam, chart review, > 50% of time spent with exam, chart review, pt care coordination Vitals Vitals Vital Signs Date Time Temp Pulse Resp B/P (MAP) Pulse Ox O2 Delivery O2 Flow Rate FiO2 04/28/19 07:00 98.2 90 16 128/70 (89) 95 Room Air 98.2 Physical Exam General: Alert, Oriented X3, Cooperative, No acute distress Heart: Regular rate, Normal S1, Normal S2 Lungs: Clear Abdomen: Normal bowel sounds, Soft, No tenderness Extremities: No clubbing Skin: No rashes, No breakdown Labs LABS Laboratory Tests Test 04/27/19 10:03 04/27/19 11:16 04/27/19 12:30 04/27/19 12:40 Glucose (Fingerstick) 228 mg/dL (70-99) 185 mg/dL (70-99) 147 mg/dL (70-99) Sodium Level 141 mmol/L (136-145) Potassium Level 3.2 mmol/L (3.5-5.1) Chloride Level 107 mmol/L (98-107) Carbon Dioxide Level 23 mmol/L (21-32) Anion Gap 11 (6-14) Blood Urea Nitrogen 14 mg/dL (8-26) Creatinine 1.2 mg/dL (0.7-1.3) Estimated GFR (Cockcroft-Gault) 91.6 Glucose Level 157 mg/dL (70-99) Calcium Level 9.0 mg/dL (8.5-10.1) Phosphorus Level 1.9 mg/dL (2.6-4.7) Magnesium Level 2.1 mg/dL (1.8-2.4) Test 04/27/19 14:55 04/27/19 17:02 04/27/19 21:11 04/28/19 07:09 Glucose (Fingerstick) 130 mg/dL (70-99) 246 mg/dL (70-99) 293 mg/dL (70-99) 293 mg/dL (70-99) Test 04/28/19 08:00 Glucose (Fingerstick) 287 mg/dL (70-99) Assessment and Plan Assessmemt and Plan Problems Medical Problems: (1) Dehydration Status: Acute (2) Diabetic ketoacidosis Status: Acute Comment Review of Relevant I have reviewed the following items francisco (where applicable) has been applied. Labs Laboratory Tests Test 04/26/19 10:37 04/26/19 10:50 04/26/19 14:49 04/26/19 15:49 O2 Saturation 97 % (92-99) Arterial Blood pH 7.11 (7.35-7.45) Arterial Blood pCO2 at Patient Temp < 15 mmHg (35-46) Arterial Blood pO2 at Patient Temp 124 mmHg (85-108) Arterial Blood HCO3 3 mmol/L (21-28) Arterial Blood Base Excess -24 mmol/L (-3-3) FiO2 21 White Blood Count 15.3 x10^3/uL (4.0-11.0) Red Blood Count 6.09 x10^6/uL (4.30-5.70) Hemoglobin 16.7 g/dL (13.0-17.5) Hematocrit 54.0 % (39.0-53.0) Mean Corpuscular Volume 89 fL (79-100) Mean Corpuscular Hemoglobin 28 pg (25-35) Mean Corpuscular Hemoglobin Concent 31 g/dL (31-37) Red Cell Distribution Width 14.2 % (11.5-14.5) Platelet Count 269 x10^3/uL (140-400) Neutrophils (%) (Auto) 88 % (31-73) Lymphocytes (%) (Auto) 6 % (24-48) Monocytes (%) (Auto) 5 % (0-9) Eosinophils (%) (Auto) 0 % (0-3) Basophils (%) (Auto) 0 % (0-3) Neutrophils # (Auto) 13.4 x10^3/uL (1.8-7.7) Lymphocytes # (Auto) 1.0 x10^3/uL (1.0-4.8) Monocytes # (Auto) 0.8 x10^3/uL (0.0-1.1) Eosinophils # (Auto) 0.0 x10^3/uL (0.0-0.7) Basophils # (Auto) 0.0 x10^3/uL (0.0-0.2) Segmented Neutrophils % 61 % (35-66) Band Neutrophils % 29 % (0-9) Lymphocytes % 7 % (24-48) Monocytes % 3 % (0-10) Platelet Estimate Adequate (ADEQUATE) Large Platelets Few D-Dimer (Megan) 0.40 ug/mlFEU (0.00-0.50) Sodium Level 126 mmol/L (136-145) Potassium Level 6.2 mmol/L (3.5-5.1) Chloride Level 83 mmol/L (98-107) Carbon Dioxide Level < 5 mmol/L (21-32) Anion Gap (6-14) Blood Urea Nitrogen 32 mg/dL (8-26) Creatinine 2.7 mg/dL (0.7-1.3) Estimated GFR (Cockcroft-Gault) 35.9 BUN/Creatinine Ratio 12 (6-20) Glucose Level 837 mg/dL (70-99) Calcium Level 10.1 mg/dL (8.5-10.1) Magnesium Level 2.6 mg/dL (1.8-2.4) Total Bilirubin 0.7 mg/dL (0.2-1.0) Aspartate Amino Transf (AST/SGOT) 26 U/L (15-37) Alanine Aminotransferase (ALT/SGPT) 49 U/L (16-63) Alkaline Phosphatase 119 U/L (46-116) Troponin I Quantitative < 0.017 ng/mL (0.000-0.055) MA-Fyt-S-Type Natriuretic Peptide 27 pg/mL (0-124) Total Protein 9.1 g/dL (6.4-8.2) Albumin 4.5 g/dL (3.4-5.0) Albumin/Globulin Ratio 1.0 (1.0-1.7) Lipase 330 U/L (73-393) Acetone Level Sm pos (NEG) Glucose (Fingerstick) 592 mg/dL (70-99) 487 mg/dL (70-99) Test 04/26/19 16:10 04/26/19 16:52 04/26/19 18:31 04/26/19 19:38 White Blood Count 15.3 x10^3/uL (4.0-11.0) Red Blood Count 5.79 x10^6/uL (4.30-5.70) Hemoglobin 15.8 g/dL (13.0-17.5) Hematocrit 50.1 % (39.0-53.0) Mean Corpuscular Volume 87 fL (79-100) Mean Corpuscular Hemoglobin 27 pg (25-35) Mean Corpuscular Hemoglobin Concent 32 g/dL (31-37) Red Cell Distribution Width 13.9 % (11.5-14.5) Platelet Count 235 x10^3/uL (140-400) Sodium Level 138 mmol/L (136-145) Potassium Level 4.9 mmol/L (3.5-5.1) Chloride Level 100 mmol/L (98-107) Carbon Dioxide Level 5 mmol/L (21-32) Anion Gap 33 (6-14) Blood Urea Nitrogen 31 mg/dL (8-26) Creatinine 2.3 mg/dL (0.7-1.3) Estimated GFR (Cockcroft-Gault) 43.2 BUN/Creatinine Ratio 13 (6-20) Glucose Level 539 mg/dL (70-99) Lactic Acid Level 2.5 mmol/L (0.4-2.0) Calcium Level 9.0 mg/dL (8.5-10.1) Magnesium Level 2.6 mg/dL (1.8-2.4) Total Bilirubin 0.6 mg/dL (0.2-1.0) Aspartate Amino Transf (AST/SGOT) 23 U/L (15-37) Alanine Aminotransferase (ALT/SGPT) 46 U/L (16-63) Alkaline Phosphatase 105 U/L (46-116) Total Protein 8.8 g/dL (6.4-8.2) Albumin 3.9 g/dL (3.4-5.0) Albumin/Globulin Ratio 0.8 (1.0-1.7) Glucose (Fingerstick) 470 mg/dL (70-99) 396 mg/dL (70-99) 341 mg/dL (70-99) Test 04/26/19 19:45 04/26/19 20:52 04/26/19 21:57 04/26/19 23:05 White Blood Count 14.2 x10^3/uL (4.0-11.0) Red Blood Count 5.55 x10^6/uL (4.30-5.70) Hemoglobin 15.3 g/dL (13.0-17.5) Hematocrit 46.8 % (39.0-53.0) Mean Corpuscular Volume 84 fL (79-100) Mean Corpuscular Hemoglobin 28 pg (25-35) Mean Corpuscular Hemoglobin Concent 33 g/dL (31-37) Red Cell Distribution Width 13.6 % (11.5-14.5) Platelet Count 217 x10^3/uL (140-400) Sodium Level 141 mmol/L (136-145) Potassium Level 4.3 mmol/L (3.5-5.1) Chloride Level 106 mmol/L (98-107) Carbon Dioxide Level 11 mmol/L (21-32) Anion Gap 24 (6-14) Blood Urea Nitrogen 27 mg/dL (8-26) Creatinine 1.7 mg/dL (0.7-1.3) Estimated GFR (Cockcroft-Gault) 61.3 BUN/Creatinine Ratio 16 (6-20) Glucose Level 375 mg/dL (70-99) Lactic Acid Level 1.4 mmol/L (0.4-2.0) Calcium Level 9.1 mg/dL (8.5-10.1) Phosphorus Level 2.2 mg/dL (2.6-4.7) Magnesium Level 2.5 mg/dL (1.8-2.4) Total Bilirubin 0.6 mg/dL (0.2-1.0) Aspartate Amino Transf (AST/SGOT) 21 U/L (15-37) Alanine Aminotransferase (ALT/SGPT) 44 U/L (16-63) Alkaline Phosphatase 90 U/L (46-116) Total Protein 8.3 g/dL (6.4-8.2) Albumin 3.7 g/dL (3.4-5.0) Albumin/Globulin Ratio 0.8 (1.0-1.7) Glucose (Fingerstick) 345 mg/dL (70-99) 314 mg/dL (70-99) 318 mg/dL (70-99) Test 04/26/19 23:55 04/27/19 00:25 04/27/19 00:59 04/27/19 02:01 Glucose (Fingerstick) 253 mg/dL (70-99) 280 mg/dL (70-99) 259 mg/dL (70-99) 246 mg/dL (70-99) Sodium Level 142 mmol/L (136-145) Potassium Level 3.8 mmol/L (3.5-5.1) Chloride Level 107 mmol/L (98-107) Carbon Dioxide Level 17 mmol/L (21-32) Anion Gap 18 (6-14) Blood Urea Nitrogen 21 mg/dL (8-26) Creatinine 1.6 mg/dL (0.7-1.3) Estimated GFR (Cockcroft-Gault) 65.7 Glucose Level 267 mg/dL (70-99) Calcium Level 9.0 mg/dL (8.5-10.1) Phosphorus Level 1.6 mg/dL (2.6-4.7) Magnesium Level 2.2 mg/dL (1.8-2.4) Test 04/27/19 03:09 04/27/19 04:08 04/27/19 04:25 04/27/19 05:02 Glucose (Fingerstick) 250 mg/dL (70-99) 248 mg/dL (70-99) 244 mg/dL (70-99) Sodium Level 141 mmol/L (136-145) Potassium Level 3.6 mmol/L (3.5-5.1) Chloride Level 106 mmol/L (98-107) Carbon Dioxide Level 19 mmol/L (21-32) Anion Gap 16 (6-14) Blood Urea Nitrogen 18 mg/dL (8-26) Creatinine 1.5 mg/dL (0.7-1.3) Estimated GFR (Cockcroft-Gault) 70.8 Glucose Level 252 mg/dL (70-99) Calcium Level 8.9 mg/dL (8.5-10.1) Phosphorus Level 1.8 mg/dL (2.6-4.7) Magnesium Level 2.1 mg/dL (1.8-2.4) Test 04/27/19 06:10 04/27/19 07:13 04/27/19 08:16 04/27/19 10:03 Glucose (Fingerstick) 280 mg/dL (70-99) 241 mg/dL (70-99) 251 mg/dL (70-99) 228 mg/dL (70-99) Test 04/27/19 11:16 04/27/19 12:30 04/27/19 12:40 04/27/19 14:55 Glucose (Fingerstick) 185 mg/dL (70-99) 147 mg/dL (70-99) 130 mg/dL (70-99) Sodium Level 141 mmol/L (136-145) Potassium Level 3.2 mmol/L (3.5-5.1) Chloride Level 107 mmol/L (98-107) Carbon Dioxide Level 23 mmol/L (21-32) Anion Gap 11 (6-14) Blood Urea Nitrogen 14 mg/dL (8-26) Creatinine 1.2 mg/dL (0.7-1.3) Estimated GFR (Cockcroft-Gault) 91.6 Glucose Level 157 mg/dL (70-99) Calcium Level 9.0 mg/dL (8.5-10.1) Phosphorus Level 1.9 mg/dL (2.6-4.7) Magnesium Level 2.1 mg/dL (1.8-2.4) Test 04/27/19 17:02 04/27/19 21:11 04/28/19 07:09 04/28/19 08:00 Glucose (Fingerstick) 246 mg/dL (70-99) 293 mg/dL (70-99) 293 mg/dL (70-99) 287 mg/dL (70-99) Laboratory Tests Test 04/27/19 10:03 04/27/19 11:16 04/27/19 12:30 04/27/19 12:40 Glucose (Fingerstick) 228 mg/dL (70-99) 185 mg/dL (70-99) 147 mg/dL (70-99) Sodium Level 141 mmol/L (136-145) Potassium Level 3.2 mmol/L (3.5-5.1) Chloride Level 107 mmol/L (98-107) Carbon Dioxide Level 23 mmol/L (21-32) Anion Gap 11 (6-14) Blood Urea Nitrogen 14 mg/dL (8-26) Creatinine 1.2 mg/dL (0.7-1.3) Estimated GFR (Cockcroft-Gault) 91.6 Glucose Level 157 mg/dL (70-99) Calcium Level 9.0 mg/dL (8.5-10.1) Phosphorus Level 1.9 mg/dL (2.6-4.7) Magnesium Level 2.1 mg/dL (1.8-2.4) Test 04/27/19 14:55 04/27/19 17:02 04/27/19 21:11 04/28/19 07:09 Glucose (Fingerstick) 130 mg/dL (70-99) 246 mg/dL (70-99) 293 mg/dL (70-99) 293 mg/dL (70-99) Test 04/28/19 08:00 Glucose (Fingerstick) 287 mg/dL (70-99) Microbiology 04/26/19 Blood Culture - Preliminary, Resulted NO GROWTH AFTER 1 DAY Medications Current Medications Sodium Chloride 1,000 ml @ 1,000 mls/hr 1X ONCE IV Last administered on 04/26/19at 11:00; Start 04/26/19 at 10:45; Stop 04/26/19 at 11:44; Status DC Sodium Chloride 1,000 ml @ 1,000 mls/hr 1X ONCE IV Last administered on 04/26/19at 11:56; Start 04/26/19 at 10:45; Stop 04/26/19 at 11:44; Status DC Insulin Human Regular 150 ml @ 0 mls/hr 1X ONCE IV Last administered on 04/26/19at 11:00; Start 04/26/19 at 10:45; Stop 04/26/19 at 10:46; Status DC Morphine Sulfate (Morphine Sulfate) 4 mg 1X ONCE IV Last administered on 04/26/19at 11:20; Start 04/26/19 at 10:45; Stop 04/26/19 at 10:46; Status DC Sodium Chloride 1,000 ml @ 1,000 mls/hr 1X ONCE IV Last administered on 04/26/19at 12:44; Start 04/26/19 at 12:00; Stop 04/26/19 at 12:59; Status DC Sodium Chloride 1,000 ml @ 1,000 mls/hr 1X ONCE IV Last administered on 04/26/19at 13:26; Start 04/26/19 at 12:15; Stop 04/26/19 at 13:14; Status DC Ceftriaxone Sodium (Rocephin) 1 gm Q24H IVP Last administered on 04/27/19at 14:48; Start 04/27/19 at 15:00 Ceftriaxone Sodium (Rocephin) 1 gm ONCE ONCE IVP Last administered on 04/26/19at 15:02; Start 04/26/19 at 14:30; Stop 04/26/19 at 14:31; Status DC Sodium Chloride 1,000 ml @ 250 mls/hr Q4H IV Last administered on 04/26/19at 20:07; Start 04/26/19 at 16:12; Stop 04/26/19 at 23:58; Status DC Insulin Human Regular 150 unit/ Sodium Chloride 151.5 ml @ 0 mls/hr CONT PRN PRN IV PER PROTOCOL Last administered on 04/26/19at 20:31; Start 04/26/19 at 16:15; Stop 04/27/19 at 06:33; Status DC Potassium Chloride/Water 100 ml @ 100 mls/hr PRN Q1HR PRN IV SEE COMMENTS; Start 04/26/19 at 16:15 Potassium Chloride/Water 100 ml @ 100 mls/hr PRN Q1HR PRN IV SEE COMMENTS; Start 04/26/19 at 16:15 Potassium Chloride/Water 100 ml @ 100 mls/hr PRN Q1HR PRN IV SEE COMMENTS; Start 04/26/19 at 16:15 Morphine Sulfate (Morphine Sulfate) 2 mg STK-MED ONCE .ROUTE ; Start 04/26/19 at 16:37; Stop 04/26/19 at 16:37; Status DC Sodium Phosphate 10 mmol/Dextrose 253.3333 ml @ 61.688 m... Q4HRS IV Last administered on 04/27/19at 01:46; Start 04/26/19 at 20:30; Stop 04/27/19 at 03:59; Status DC Sodium Chloride 1,000 ml @ 250 mls/hr PRN Q4HRS PRN IV SEE I/O RECORD Last administered on 04/26/19at 20:31; Start 04/26/19 at 20:30; Stop 04/26/19 at 23:58; Status DC Dextrose/Sodium Chloride 1,000 ml @ 250 mls/hr Q4H IV Last administered on 04/27/19at 11:03; Start 04/27/19 at 00:00; Stop 04/27/19 at 13:17; Status DC Potassium Chloride/Water 100 ml @ 100 mls/hr Q1H IV Last administered on 04/27/19at 02:22; Start 04/27/19 at 01:15; Stop 04/27/19 at 03:14; Status DC Potassium Chloride/Water 100 ml @ 100 mls/hr Q1H IV Last administered on at 10:50; Start 04/27/19 at 06:15; Stop 04/27/19 at 10:14; Status DC Sodium Phosphate 20 mmol/Dextrose 256.6667 ml @ 64.167 m... 1X ONCE IV Last administered on 04/27/19at 06:31; Start 04/27/19 at 06:15; Stop 04/27/19 at 10:14; Status DC Insulin Human Regular 150 unit/ Sodium Chloride 151.5 ml @ 0 mls/hr CONT PRN IV SEE I/O RECORD; Start 04/27/19 at 06:30 Lactobacillus Rhamnosus (Culturelle) 1 cap BID PO Last administered on 04/27/19at 20:51; Start 04/27/19 at 12:00 Dextrose/Sodium Chloride 1,000 ml @ 250 mls/hr Q4H IV Last administered on 04/27/19at 19:17; Start 04/27/19 at 13:15 Sodium Phosphate 40 mmol/Dextrose 263.3333 ml @ 62.5 mls/hr 1X ONCE IV Last administered on 04/27/19at 14:35; Start 04/27/19 at 13:30; Stop 04/27/19 at 17:42; Status DC Insulin Human Lispro (HumaLOG) 15 units TIDAC SQ ; Start 04/27/19 at 16:30; Stop 04/27/19 at 13:47; Status DC Insulin Glargine (Lantus Syringe) 30 unit QHS SQ Last administered on 04/27/19at 22:48; Start 04/27/19 at 13:45 Insulin Human Lispro (HumaLOG) 0-9 UNITS TIDWMEALS SQ Last administered on 04/28/19at 09:43; Start 04/27/19 at 17:00 Dextrose (Dextrose 50%-Water Syringe) 12.5 gm PRN Q15MIN PRN IV SEE COMMENTS; Start 04/27/19 at 13:45 Dextrose 250 ml PRN Q15MIN PRN IV SEE COMMENTS; Start 04/27/19 at 13:45; Status UNV Glyburide (Diabeta) 5 mg BIDWMEALS PO Last administered on 04/27/19at 17:42; Start 04/27/19 at 17:00 Insulin Human Lispro (HumaLOG) 15 units TIDWMEALS SQ Last administered on 04/27/19at 17:49; Start 04/27/19 at 17:00 Potassium Chloride/Water 100 ml @ 100 mls/hr Q1HR IV Last administered on 04/27/19at 17:43; Start 04/27/19 at 14:00; Stop 04/27/19 at 17:59; Status DC Insulin Human Lispro (HumaLOG) 15 units 1X ONCE SQ Last administered on 04/27/19at 14:57; Start 04/27/19 at 14:45; Stop 04/27/19 at 14:46; Status DC Active Scripts Active Reported Januvia (Sitagliptin Phosphate) 100 Mg Tablet 1 Tab PO DAILY Vitals/I & O Vital Sign - Last 24 Hours 04/27/19 04/27/19 04/27/19 04/27/19 16:00 19:00 20:20 23:00 Temp 98.3 98.2 98.2 98.3 98.2 98.2 Pulse 93 93 85 Resp 17 20 20 B/P (MAP) 142/94 (110) 126/59 (81) 89/38 (55) Pulse Ox 99 96 97 O2 Delivery Room Air Room Air Room Air Room Air 04/28/19 04/28/19 03:00 07:00 Temp 98.0 98.2 98.0 98.2 Pulse 89 90 Resp 20 16 B/P (MAP) 102/59 (73) 128/70 (89) Pulse Ox 96 95 O2 Delivery Room Air Room Air Intake and Output 04/27/19 04/27/19 04/28/19 15:00 23:00 07:00 Intake Total 1460 ml 300 ml 1400 ml Output Total 1050 ml 650 ml Balance 410 ml -350 ml 1400 ml JOHN WARREN MD Apr 28, 2019 09:49
[2019-04-28] MEDS: LACTOBACILLUS RHAMNOSUS GG 1 CAPSULE. PO SCH ×2 (10:52→22:11)
[2019-04-28] MEDS: glyBURIDE 5 MG TABLET PO SCH ×2 (10:52→18:36)
[2019-04-28 11:00] VITALS: BP 135/74
--- NOTE | 2019-04-28 12:10 | PDOC ---
Renal-Progress Notes Subjective Notes Notes NOTHING NEW History of Present Illness Hx of present illness STABLE Vitals Vitals Vital Signs Date Time Temp Pulse Resp B/P (MAP) Pulse Ox O2 Delivery O2 Flow Rate FiO2 04/28/19 11:00 97.9 87 18 135/74 (94) 100 Room Air 97.9 Weight Weight [ ] I.O. Intake and Output Intake and Output 04/28/19 07:00 Intake Total 3160 ml Output Total 1700 ml Balance 1460 ml Intake Oral 1060 ml IV Total 2100 ml Output Urine Total 1700 ml # Voids 2 Labs Labs Laboratory Tests Test 04/27/19 12:30 04/27/19 12:40 04/27/19 14:55 04/27/19 17:02 Glucose (Fingerstick) 147 mg/dL (70-99) 130 mg/dL (70-99) 246 mg/dL (70-99) Sodium Level 141 mmol/L (136-145) Potassium Level 3.2 mmol/L (3.5-5.1) Chloride Level 107 mmol/L (98-107) Carbon Dioxide Level 23 mmol/L (21-32) Anion Gap 11 (6-14) Blood Urea Nitrogen 14 mg/dL (8-26) Creatinine 1.2 mg/dL (0.7-1.3) Estimated GFR (Cockcroft-Gault) 91.6 Glucose Level 157 mg/dL (70-99) Calcium Level 9.0 mg/dL (8.5-10.1) Phosphorus Level 1.9 mg/dL (2.6-4.7) Magnesium Level 2.1 mg/dL (1.8-2.4) Test 04/27/19 21:11 04/28/19 07:09 04/28/19 08:00 04/28/19 11:40 Glucose (Fingerstick) 293 mg/dL (70-99) 293 mg/dL (70-99) 287 mg/dL (70-99) 287 mg/dL (70-99) Micro Micro Microbiology 04/26/19 Blood Culture - Preliminary, Resulted NO GROWTH AFTER 1 DAY Review of Systems Constitutional: yes: weakness, alert Ears/Nose/Throat: Yes: no symptom reported Eyes: Yes: no symptom reported Pulmonary: Yes no symptom reported Cardiovascular: Yes no symptom reported Gastrointestional: Yes: no symptom reported Genitourinary: Yes: no symptom reported Musculoskeletal: Yes: no symptom reported Skin: Yes no symptom reported Psychiatric/Neurological: Yes: no symptom reported Endocrine: Yes: no symptom reported Physical Exam General Appearance: no apparent distress Skin: warm Respiratory: bilateral CTA Heart: S1S2 Abdomen: soft, bowel sounds present Genitourinary: bladder flat Extremities: pulses present Neurology: alert Assessment Assessment IMP DKA-RESOLVED MET ACIDOSIS HYPERKALEMIA ETHAN DUE TO DEHYDRATION-RESOLVED PLAN HYDRATION INSULIN DKA PROTOCOL CORRECT ELECTROLYTES NEEDED WILL SIGN OFF PLEASE CALL IF NEEDED DORCAS POWERS MD Apr 28, 2019 12:10
[2019-04-28 14:22] LABS: CALCIUM 8.7 mg/dL (8.5-10.1); GFR 113.1; POTASSIUM 3.1 mmol/L (3.5-5.1)
[2019-04-28 15:00] VITALS: BP 109/49
[2019-04-28] MEDS: cefTRIAXone IV Push 1 GM VIAL. IVP SCH (15:16)
[2019-04-28 19:00] VITALS: BP 151/75
--- NOTE | 2019-04-28 19:33 | RAD ---
Indication: Upper abdominal pain TECHNIQUE: Single supine AP view of the abdomen pelvis COMPARISON: None FINDINGS: No abnormally dilated bowel loops. No abnormal calcifications. Visualized bones are within normal limits. IMPRESSION: No radiographic evidence of high-grade bowel obstruction. Electronically signed by: Erwin Sandoval DO (04/28/2019 7:30 PM) [facility]
[2019-04-28] MEDS: INSULIN GLARGINE SYRINGE. SQ SCH (22:14)
[2019-04-28 23:00] VITALS: BP 97/53
[2019-04-29] MEDS: IV DEXTROSE 5% - 0.9 % NACL 1,000 ML IV SCH ×5 (01:15→17:15)
[2019-04-29 02:50] VITALS: BP 101/44
[2019-04-29 07:00] VITALS: BP 107/63
--- NOTE | 2019-04-29 07:36 | PDOC ---
PROGRESS NOTES Chief Complaint Chief Complaint DKA History of Present Illness History of Present Illness 04/29/19 Pt was seen and examined K LOW His anion gap has decreased to 10. slowly starting to feel better. Consulted nephrology DW RN HYDRATION INSULIN DKA PROTOCOL INC LANTUS TO 35 UNITS SQ HS ADA DIET 26 min pt exam, chart review, > 50% of time spent with exam, chart review, pt care coordination Vitals Vitals Vital Signs Date Time Temp Pulse Resp B/P (MAP) Pulse Ox O2 Delivery O2 Flow Rate FiO2 04/29/19 02:50 97.6 76 18 101/44 (63) 100 Room Air 97.6 Physical Exam General: Alert, Oriented X3, Cooperative, No acute distress Heart: Regular rate, Normal S1, Normal S2 Lungs: Clear Abdomen: Normal bowel sounds, Soft, No tenderness Extremities: No clubbing Skin: No rashes, No breakdown Labs LABS Indication: Upper abdominal pain TECHNIQUE: Single supine AP view of the abdomen pelvis COMPARISON: None FINDINGS: No abnormally dilated bowel loops. No abnormal calcifications. Visualized bones are within normal limits. IMPRESSION: No radiographic evidence of high-grade bowel obstruction. Electronically signed by: Erwin Sandoval DO (04/28/2019 7:30 PM) [facility] Laboratory Tests Test 04/28/19 08:00 04/28/19 11:40 04/28/19 12:19 04/28/19 13:30 Glucose (Fingerstick) 287 mg/dL (70-99) 287 mg/dL (70-99) 259 mg/dL (70-99) Sodium Level 135 mmol/L (136-145) Potassium Level 3.1 mmol/L (3.5-5.1) Chloride Level 102 mmol/L (98-107) Carbon Dioxide Level 23 mmol/L (21-32) Anion Gap 10 (6-14) Blood Urea Nitrogen 9 mg/dL (8-26) Creatinine 1.0 mg/dL (0.7-1.3) Estimated GFR (Cockcroft-Gault) 113.1 Glucose Level 348 mg/dL (70-99) Calcium Level 8.7 mg/dL (8.5-10.1) Test 04/28/19 16:44 04/28/19 21:34 Glucose (Fingerstick) 275 mg/dL (70-99) 213 mg/dL (70-99) Assessment and Plan Assessmemt and Plan Problems Medical Problems: (1) Dehydration Status: Acute (2) Diabetic ketoacidosis Status: Acute Comment Review of Relevant I have reviewed the following items francisco (where applicable) has been applied. Labs Laboratory Tests Test 04/27/19 08:16 04/27/19 10:03 04/27/19 11:16 04/27/19 12:30 Glucose (Fingerstick) 251 mg/dL (70-99) 228 mg/dL (70-99) 185 mg/dL (70-99) 147 mg/dL (70-99) Test 04/27/19 12:40 04/27/19 14:55 04/27/19 17:02 04/27/19 21:11 Sodium Level 141 mmol/L (136-145) Potassium Level 3.2 mmol/L (3.5-5.1) Chloride Level 107 mmol/L (98-107) Carbon Dioxide Level 23 mmol/L (21-32) Anion Gap 11 (6-14) Blood Urea Nitrogen 14 mg/dL (8-26) Creatinine 1.2 mg/dL (0.7-1.3) Estimated GFR (Cockcroft-Gault) 91.6 Glucose Level 157 mg/dL (70-99) Calcium Level 9.0 mg/dL (8.5-10.1) Phosphorus Level 1.9 mg/dL (2.6-4.7) Magnesium Level 2.1 mg/dL (1.8-2.4) Glucose (Fingerstick) 130 mg/dL (70-99) 246 mg/dL (70-99) 293 mg/dL (70-99) Test 04/28/19 07:09 04/28/19 08:00 04/28/19 11:40 04/28/19 12:19 Glucose (Fingerstick) 293 mg/dL (70-99) 287 mg/dL (70-99) 287 mg/dL (70-99) 259 mg/dL (70-99) Test 04/28/19 13:30 04/28/19 16:44 04/28/19 21:34 Sodium Level 135 mmol/L (136-145) Potassium Level 3.1 mmol/L (3.5-5.1) Chloride Level 102 mmol/L (98-107) Carbon Dioxide Level 23 mmol/L (21-32) Anion Gap 10 (6-14) Blood Urea Nitrogen 9 mg/dL (8-26) Creatinine 1.0 mg/dL (0.7-1.3) Estimated GFR (Cockcroft-Gault) 113.1 Glucose Level 348 mg/dL (70-99) Calcium Level 8.7 mg/dL (8.5-10.1) Glucose (Fingerstick) 275 mg/dL (70-99) 213 mg/dL (70-99) Laboratory Tests Test 04/28/19 08:00 04/28/19 11:40 04/28/19 12:19 04/28/19 13:30 Glucose (Fingerstick) 287 mg/dL (70-99) 287 mg/dL (70-99) 259 mg/dL (70-99) Sodium Level 135 mmol/L (136-145) Potassium Level 3.1 mmol/L (3.5-5.1) Chloride Level 102 mmol/L (98-107) Carbon Dioxide Level 23 mmol/L (21-32) Anion Gap 10 (6-14) Blood Urea Nitrogen 9 mg/dL (8-26) Creatinine 1.0 mg/dL (0.7-1.3) Estimated GFR (Cockcroft-Gault) 113.1 Glucose Level 348 mg/dL (70-99) Calcium Level 8.7 mg/dL (8.5-10.1) Test 04/28/19 16:44 04/28/19 21:34 Glucose (Fingerstick) 275 mg/dL (70-99) 213 mg/dL (70-99) Microbiology 04/26/19 Blood Culture - Preliminary, Resulted NO GROWTH AFTER 2 DAYS Medications Current Medications Sodium Chloride 1,000 ml @ 1,000 mls/hr 1X ONCE IV Last administered on 04/26/19at 11:00; Start 04/26/19 at 10:45; Stop 04/26/19 at 11:44; Status DC Sodium Chloride 1,000 ml @ 1,000 mls/hr 1X ONCE IV Last administered on 04/26/19at 11:56; Start 04/26/19 at 10:45; Stop 04/26/19 at 11:44; Status DC Insulin Human Regular 150 ml @ 0 mls/hr 1X ONCE IV Last administered on 04/26/19at 11:00; Start 04/26/19 at 10:45; Stop 04/26/19 at 10:46; Status DC Morphine Sulfate (Morphine Sulfate) 4 mg 1X ONCE IV Last administered on 04/26/19at 11:20; Start 04/26/19 at 10:45; Stop 04/26/19 at 10:46; Status DC Sodium Chloride 1,000 ml @ 1,000 mls/hr 1X ONCE IV Last administered on 04/26/19at 12:44; Start 04/26/19 at 12:00; Stop 04/26/19 at 12:59; Status DC Sodium Chloride 1,000 ml @ 1,000 mls/hr 1X ONCE IV Last administered on 04/04 11/19at 13:26; Start 04/26/19 at 12:15; Stop 04/26/19 at 13:14; Status DC Ceftriaxone Sodium (Rocephin) 1 gm Q24H IVP Last administered on 04/28/19at 15:16; Start 04/27/19 at 15:00 Ceftriaxone Sodium (Rocephin) 1 gm ONCE ONCE IVP Last administered on 04/04 11/19at 15:02; Start 04/26/19 at 14:30; Stop 04/26/19 at 14:31; Status DC Sodium Chloride 1,000 ml @ 250 mls/hr Q4H IV Last administered on 04/26/19at 20:07; Start 04/26/19 at 16:12; Stop 04/26/19 at 23:58; Status DC Insulin Human Regular 150 unit/ Sodium Chloride 151.5 ml @ 0 mls/hr CONT PRN PRN IV PER PROTOCOL Last administered on 04/26/19at 20:31; Start 04/26/19 at 16:15; Stop 04/27/19 at 06:33; Status DC Potassium Chloride/Water 100 ml @ 100 mls/hr PRN Q1HR PRN IV SEE COMMENTS; Start 04/26/19 at 16:15 Potassium Chloride/Water 100 ml @ 100 mls/hr PRN Q1HR PRN IV SEE COMMENTS; Start 04/26/19 at 16:15 Potassium Chloride/Water 100 ml @ 100 mls/hr PRN Q1HR PRN IV SEE COMMENTS; Start 04/26/19 at 16:15 Morphine Sulfate (Morphine Sulfate) 2 mg STK-MED ONCE .ROUTE ; Start 04/26/19 at 16:37; Stop 04/26/19 at 16:37; Status DC Sodium Phosphate 10 mmol/Dextrose 253.3333 ml @ 61.688 m... Q4HRS IV Last administered on 04/27/19at 01:46; Start 04/26/19 at 20:30; Stop 04/27/19 at 03:59; Status DC Sodium Chloride 1,000 ml @ 250 mls/hr PRN Q4HRS PRN IV SEE I/O RECORD Last administered on 04/26/19at 20:31; Start 04/26/19 at 20:30; Stop 04/26/19 at 23:58; Status DC Dextrose/Sodium Chloride 1,000 ml @ 250 mls/hr Q4H IV Last administered on 04/27/19at 11:03; Start 04/27/19 at 00:00; Stop 04/27/19 at 13:17; Status DC Potassium Chloride/Water 100 ml @ 100 mls/hr Q1H IV Last administered on 04/27/19at 02:22; Start 04/27/19 at 01:15; Stop 04/27/19 at 03:14; Status DC Potassium Chloride/Water 100 ml @ 100 mls/hr Q1H IV Last administered on 04/27/19at 10:50; Start 04/27/19 at 06:15; Stop 04/27/19 at 10:14; Status DC Sodium Phosphate 20 mmol/Dextrose 256.6667 ml @ 64.167 m... 1X ONCE IV Last administered on 04/27/19at 06:31; Start 04/27/19 at 06:15; Stop 04/27/19 at 10:14; Status DC Insulin Human Regular 150 unit/ Sodium Chloride 151.5 ml @ 0 mls/hr CONT PRN IV SEE I/O RECORD; Start 04/27/19 at 06:30; Stop 04/28/19 at 16:43; Status DC Lactobacillus Rhamnosus (Culturelle) 1 cap BID PO Last administered on 04/28/19 at 22:11; Start 04/27/19 at 12:00 Dextrose/Sodium Chloride 1,000 ml @ 250 mls/hr Q4H IV Last administered on 04/27/19at 19:17; Start 04/27/19 at 13:15 Sodium Phosphate 40 mmol/Dextrose 263.3333 ml @ 62.5 mls/hr 1X ONCE IV Last administered on 04/27/19at 14:35; Start 04/27/19 at 13:30; Stop 04/27/19 at 17:42; Status DC Insulin Human Lispro (HumaLOG) 15 units TIDAC SQ ; Start 04/27/19 at 16:30; Stop 04/27/19 at 13:47; Status DC Insulin Glargine (Lantus Syringe) 30 unit QHS SQ Last administered on 04/28/19at 22:14; Start 04/27/19 at 13:45 Insulin Human Lispro (HumaLOG) 0-9 UNITS TIDWMEALS SQ Last administered on 04/28/19at 18:40; Start 04/27/19 at 17:00 Dextrose (Dextrose 50%-Water Syringe) 12.5 gm PRN Q15MIN PRN IV SEE COMMENTS; Start 04/27/19 at 13:45 Dextrose 250 ml PRN Q15MIN PRN IV SEE COMMENTS; Start 04/27/19 at 13:45; Status UNV Glyburide (Diabeta) 5 mg BIDWMEALS PO Last administered on 04/28/19at 18:36; Start 04/27/19 at 17:00 Insulin Human Lispro (HumaLOG) 15 units TIDWMEALS SQ Last administered on 04/28/19at 18:41; Start 04/27/19 at 17:00 Potassium Chloride/Water 100 ml @ 100 mls/hr Q1HR IV Last administered on 04/27/19at 17:43; Start 04/27/19 at 14:00; Stop 04/27/19 at 17:59; Status DC Insulin Human Lispro (HumaLOG) 15 units 1X ONCE SQ Last administered on 04/27/19at 14:57; Start 04/27/19 at 14:45; Stop 04/27/19 at 14:46; Status DC Active Scripts Active Reported Januvia (Sitagliptin Phosphate) 100 Mg Tablet 1 Tab PO DAILY Vitals/I & O Vital Sign - Last 24 Hours 04/28/19 04/28/19 04/28/19 04/28/19 11:00 15:00 19:00 20:00 Temp 97.9 98.4 98.3 97.9 98.4 98.3 Pulse 87 98 96 Resp 18 16 16 B/P (MAP) 135/74 (94) 109/49 (69) 151/75 (100) Pulse Ox 100 99 100 O2 Delivery Room Air Room Air Room Air Room Air 04/28/19 04/29/19 23:00 02:50 Temp 97.6 97.6 97.6 97.6 Pulse 85 76 Resp 16 18 B/P (MAP) 97/53 (68) 101/44 (63) Pulse Ox 100 100 O2 Delivery Room Air Room Air Intake and Output 04/28/19 04/28/19 04/29/19 15:00 23:00 07:00 Intake Total 1000 ml 700 ml 0 ml Balance 1000 ml 700 ml 0 ml JOHN WARREN MD Apr 29, 2019 07:36
[2019-04-29] MEDS: INSULIN LISPRO 300 UNITS/3 ML VIAL. SQ SCH ×6 (08:44→17:55)
[2019-04-29] MEDS: LACTOBACILLUS RHAMNOSUS GG 1 CAPSULE. PO SCH ×2 (10:15→20:56)
[2019-04-29] MEDS: glyBURIDE 5 MG TABLET PO SCH ×2 (10:15→17:49)
[2019-04-29 11:00] VITALS: BP 117/84
[2019-04-29] MEDS ORDERED: POTASSIUM CHLORIDE 20 MEQ TABLET.ER. PO ONE (14:15)
[2019-04-29 15:00] VITALS: BP 117/75
[2019-04-29] MEDS: cefTRIAXone IV Push 1 GM VIAL. IVP SCH (16:33)
[2019-04-29 18:22] LABS: BILIRUBIN,URINE NEGATIVE (NEG); CLARITY,URINE CLEAR; COLOR,URINE YELLOW; NITRITE,URINE NEGATIVE (NEG); PH,URINE 6.5; PROTEIN,URINE NEGATIVE (NEG-TRACE)
[2019-04-29 18:27] LABS: BARBITURATES NEG (NEG); BENZODIAZEPINES NEG (NEG); CANNABINOIDS NEG (NEG); COCAINE NEG (NEG); METHADONE NEG (NEG); OPIATES NEG (NEG); PHENCYCLIDINE NEG (NEG)
[2019-04-29 18:29] LABS: AMPHETAMINE/METHAMPHETAMINE NEG (NEG)
[2019-04-29 18:46] LABS: BACTERIA,URINE 0 /HPF (0-FEW); RBC,URINE 0 /HPF (0-2); SQUAMOUS EPITHELIAL CELL,UR OCC /LPF; WBC,URINE OCC /HPF (0-4)
[2019-04-29 19:00] VITALS: BP 140/80
[2019-04-29] MEDS ORDERED: ACETAMINOPHEN/CODEINE 300/30MG TABLET. PO PRN (19:00)
[2019-04-29] MEDS ORDERED: ZOLPIDEM 5 MG TABLET. PO PRN (19:00)
[2019-04-29] MEDS ORDERED: ACETAMINOPHEN 500 MG TABLET PO PRN (19:00)
[2019-04-29] MEDS ORDERED: ONDANSETRON PF 4 MG/2 ML VIAL. IVP PRN (19:00)
[2019-04-29 19:57] LABS: CALCIUM 8.6 mg/dL (8.5-10.1); CREATININE 0.9 mg/dL (0.7-1.3); GFR 127.7; POTASSIUM 3.1 mmol/L (3.5-5.1)
[2019-04-29] MEDS ORDERED: INSULIN GLARGINE SYRINGE. SQ SCH (21:00)
[2019-04-29 23:00] VITALS: BP 100/52
[2019-04-30 03:00] VITALS: BP 108/48
[2019-04-30 05:58] LABS: CALCIUM 8.5 mg/dL (8.5-10.1); CREATININE 0.8 mg/dL (0.7-1.3); GFR 146.3; POTASSIUM 3.2 mmol/L (3.5-5.1)
[2019-04-30 07:00] VITALS: BP 102/50
[2019-04-30] MEDS ORDERED: POTASSIUM CHLORIDE 20 MEQ TABLET.ER. PO SCH (08:00)
[2019-04-30] MEDS: glyBURIDE 5 MG TABLET PO SCH (08:41)
[2019-04-30] MEDS: LACTOBACILLUS RHAMNOSUS GG 1 CAPSULE. PO SCH (08:41)
[2019-04-30] MEDS: INSULIN LISPRO 300 UNITS/3 ML VIAL. SQ SCH ×4 (08:47→13:06)
--- NOTE | 2019-04-30 08:54 | PDOC ---
PROGRESS NOTES Chief Complaint Chief Complaint DKA History of Present Illness History of Present Illness discharge dx 04/30/19 Pt was seen and examined K LOW His anion gap has decreased to 12. feels better. Consulted nephrology JESUS RN HYDRATION INSULIN DKA PROTOCOL INC LANTUS TO 35 UNITS SQ HS ADA DIET 40 meq kcl po x 1 now 26 min pt exam, chart review d/c planning , > 50% of time spent with exam, chart review, pt care coordination Vitals Vitals Vital Signs Date Time Temp Pulse Resp B/P (MAP) Pulse Ox O2 Delivery O2 Flow Rate FiO2 04/30/19 07:00 97.9 70 16 102/50 (67) 99 Room Air 97.9 Physical Exam General: Alert, Oriented X3, Cooperative, No acute distress Heart: Regular rate, Normal S1, Normal S2 Lungs: Clear Abdomen: Normal bowel sounds, Soft, No tenderness Extremities: No clubbing Skin: No rashes, No breakdown Labs LABS Laboratory Tests Test 04/29/19 11:23 04/29/19 16:43 04/29/19 17:50 04/29/19 19:30 Glucose (Fingerstick) 305 mg/dL (70-99) 111 mg/dL (70-99) Urine Color Yellow Urine Clarity Clear Urine pH 6.5 Urine Specific [place] 1.015 Urine Protein Negative mg/dL (NEG-TRACE) Urine Glucose (UA) Negative mg/dL (NEG) Urine Ketones (Stick) Negative mg/dL (NEG) Urine Blood Negative (NEG) Urine Nitrite Negative (NEG) Urine Bilirubin Negative (NEG) Urine Urobilinogen Dipstick 1.0 mg/dL (0.2 mg/dL) Urine Leukocyte Esterase Negative (NEG) Urine RBC 0 /HPF (0-2) Urine WBC Occ /HPF (0-4) Urine Squamous Epithelial Cells Occ /LPF Urine Bacteria 0 /HPF (0-FEW) Urine Opiates Screen Neg (NEG) Urine Methadone Screen Neg (NEG) Urine Barbiturates Neg (NEG) Urine Phencyclidine Screen Neg (NEG) Urine Amphetamine/Methamphetamine Neg (NEG) Urine Benzodiazepines Screen Neg (NEG) Urine Cocaine Screen Neg (NEG) Urine Cannabinoids Screen Neg (NEG) Urine Ethyl Alcohol Neg (NEG) Sodium Level 138 mmol/L (136-145) Potassium Level 3.1 mmol/L (3.5-5.1) Chloride Level 104 mmol/L (98-107) Carbon Dioxide Level 27 mmol/L (21-32) Anion Gap 7 (6-14) Blood Urea Nitrogen 10 mg/dL (8-26) Creatinine 0.9 mg/dL (0.7-1.3) Estimated GFR (Cockcroft-Gault) 127.7 Glucose Level 248 mg/dL (70-99) Calcium Level 8.6 mg/dL (8.5-10.1) Test 04/29/19 20:56 04/30/19 05:05 04/30/19 07:46 Glucose (Fingerstick) 272 mg/dL (70-99) 325 mg/dL (70-99) Sodium Level 141 mmol/L (136-145) Potassium Level 3.2 mmol/L (3.5-5.1) Chloride Level 106 mmol/L (98-107) Carbon Dioxide Level 23 mmol/L (21-32) Anion Gap 12 (6-14) Blood Urea Nitrogen 11 mg/dL (8-26) Creatinine 0.8 mg/dL (0.7-1.3) Estimated GFR (Cockcroft-Gault) 146.3 Glucose Level 313 mg/dL (70-99) Calcium Level 8.5 mg/dL (8.5-10.1) Assessment and Plan Assessmemt and Plan Problems Medical Problems: (1) Dehydration Status: Acute (2) Diabetic ketoacidosis Status: Acute Comment Review of Relevant I have reviewed the following items francisco (where applicable) has been applied. Labs Laboratory Tests Test 04/28/19 11:40 04/28/19 12:19 04/28/19 13:30 04/28/19 16:44 Glucose (Fingerstick) 287 mg/dL (70-99) 259 mg/dL (70-99) 275 mg/dL (70-99) Sodium Level 135 mmol/L (136-145) Potassium Level 3.1 mmol/L (3.5-5.1) Chloride Level 102 mmol/L (98-107) Carbon Dioxide Level 23 mmol/L (21-32) Anion Gap 10 (6-14) Blood Urea Nitrogen 9 mg/dL (8-26) Creatinine 1.0 mg/dL (0.7-1.3) Estimated GFR (Cockcroft-Gault) 113.1 Glucose Level 348 mg/dL (70-99) Calcium Level 8.7 mg/dL (8.5-10.1) Test 04/28/19 21:34 04/29/19 07:17 04/29/19 11:23 04/29/19 16:43 Glucose (Fingerstick) 213 mg/dL (70-99) 343 mg/dL (70-99) 305 mg/dL (70-99) 111 mg/dL (70-99) Test 04/29/19 17:50 04/29/19 19:30 04/29/19 20:56 04/30/19 05:05 Urine Color Yellow Urine Clarity Clear Urine pH 6.5 Urine Specific [place] 1.015 Urine Protein Negative mg/dL (NEG-TRACE) Urine Glucose (UA) Negative mg/dL (NEG) Urine Ketones (Stick) Negative mg/dL (NEG) Urine Blood Negative (NEG) Urine Nitrite Negative (NEG) Urine Bilirubin Negative (NEG) Urine Urobilinogen Dipstick 1.0 mg/dL (0.2 mg/dL) Urine Leukocyte Esterase Negative (NEG) Urine RBC 0 /HPF (0-2) Urine WBC Occ /HPF (0-4) Urine Squamous Epithelial Cells Occ /LPF Urine Bacteria 0 /HPF (0-FEW) Urine Opiates Screen Neg (NEG) Urine Methadone Screen Neg (NEG) Urine Barbiturates Neg (NEG) Urine Phencyclidine Screen Neg (NEG) Urine Amphetamine/Methamphetamine Neg (NEG) Urine Benzodiazepines Screen Neg (NEG) Urine Cocaine Screen Neg (NEG) Urine Cannabinoids Screen Neg (NEG) Urine Ethyl Alcohol Neg (NEG) Sodium Level 138 mmol/L (136-145) 141 mmol/L (136-145) Potassium Level 3.1 mmol/L (3.5-5.1) 3.2 mmol/L (3.5-5.1) Chloride Level 104 mmol/L (98-107) 106 mmol/L (98-107) Carbon Dioxide Level 27 mmol/L (21-32) 23 mmol/L (21-32) Anion Gap 7 (6-14) 12 (6-14) Blood Urea Nitrogen 10 mg/dL (8-26) 11 mg/dL (8-26) Creatinine 0.9 mg/dL (0.7-1.3) 0.8 mg/dL (0.7-1.3) Estimated GFR (Cockcroft-Gault) 127.7 146.3 Glucose Level 248 mg/dL (70-99) 313 mg/dL (70-99) Calcium Level 8.6 mg/dL (8.5-10.1) 8.5 mg/dL (8.5-10.1) Glucose (Fingerstick) 272 mg/dL (70-99) Test 04/30/19 07:46 Glucose (Fingerstick) 325 mg/dL (70-99) Laboratory Tests Test 04/29/19 11:23 04/29/19 16:43 04/29/19 17:50 04/29/19 19:30 Glucose (Fingerstick) 305 mg/dL (70-99) 111 mg/dL (70-99) Urine Color Yellow Urine Clarity Clear Urine pH 6.5 Urine Specific [place] 1.015 Urine Protein Negative mg/dL (NEG-TRACE) Urine Glucose (UA) Negative mg/dL (NEG) Urine Ketones (Stick) Negative mg/dL (NEG) Urine Blood Negative (NEG) Urine Nitrite Negative (NEG) Urine Bilirubin Negative (NEG) Urine Urobilinogen Dipstick 1.0 mg/dL (0.2 mg/dL) Urine Leukocyte Esterase Negative (NEG) Urine RBC 0 /HPF (0-2) Urine WBC Occ /HPF (0-4) Urine Squamous Epithelial Cells Occ /LPF Urine Bacteria 0 /HPF (0-FEW) Urine Opiates Screen Neg (NEG) Urine Methadone Screen Neg (NEG) Urine Barbiturates Neg (NEG) Urine Phencyclidine Screen Neg (NEG) Urine Amphetamine/Methamphetamine Neg (NEG) Urine Benzodiazepines Screen Neg (NEG) Urine Cocaine Screen Neg (NEG) Urine Cannabinoids Screen Neg (NEG) Urine Ethyl Alcohol Neg (NEG) Sodium Level 138 mmol/L (136-145) Potassium Level 3.1 mmol/L (3.5-5.1) Chloride Level 104 mmol/L (98-107) Carbon Dioxide Level 27 mmol/L (21-32) Anion Gap 7 (6-14) Blood Urea Nitrogen 10 mg/dL (8-26) Creatinine 0.9 mg/dL (0.7-1.3) Estimated GFR (Cockcroft-Gault) 127.7 Glucose Level 248 mg/dL (70-99) Calcium Level 8.6 mg/dL (8.5-10.1) Test 04/29/19 20:56 04/30/19 05:05 04/30/19 07:46 Glucose (Fingerstick) 272 mg/dL (70-99) 325 mg/dL (70-99) Sodium Level 141 mmol/L (136-145) Potassium Level 3.2 mmol/L (3.5-5.1) Chloride Level 106 mmol/L (98-107) Carbon Dioxide Level 23 mmol/L (21-32) Anion Gap 12 (6-14) Blood Urea Nitrogen 11 mg/dL (8-26) Creatinine 0.8 mg/dL (0.7-1.3) Estimated GFR (Cockcroft-Gault) 146.3 Glucose Level 313 mg/dL (70-99) Calcium Level 8.5 mg/dL (8.5-10.1) Microbiology 04/26/19 Blood Culture - Preliminary, Resulted NO GROWTH AFTER 3 DAYS Medications Current Medications Sodium Chloride 1,000 ml @ 1,000 mls/hr 1X ONCE IV Last administered on 04/26/19at 11:00; Start 04/26/19 at 10:45; Stop 04/26/19 at 11:44; Status DC Sodium Chloride 1,000 ml @ 1,000 mls/hr 1X ONCE IV Last administered on 04/26/19at 11:56; Start 04/26/19 at 10:45; Stop 04/26/19 at 11:44; Status DC Insulin Human Regular 150 ml @ 0 mls/hr 1X ONCE IV Last administered on 04/26/19at 11:00; Start 04/26/19 at 10:45; Stop 04/26/19 at 10:46; Status DC Morphine Sulfate (Morphine Sulfate) 4 mg 1X ONCE IV Last administered on 04/26/19at 11:20; Start 04/26/19 at 10:45; Stop 04/26/19 at 10:46; Status DC Sodium Chloride 1,000 ml @ 1,000 mls/hr 1X ONCE IV Last administered on 04/26/19at 12:44; Start 04/26/19 at 12:00; Stop 04/26/19 at 12:59; Status DC Sodium Chloride 1,000 ml @ 1,000 mls/hr 1X ONCE IV Last administered on 04/26/19at 13:26; Start 04/26/19 at 12:15; Stop 04/26/19 at 13:14; Status DC Ceftriaxone Sodium (Rocephin) 1 gm Q24H IVP Last administered on 04/29/19at 16:33; Start 04/27/19 at 15:00; Stop 04/29/19 at 17:43; Status DC Ceftriaxone Sodium (Rocephin) 1 gm ONCE ONCE IVP Last administered on 04/26/19at 15:02; Start 04/26/19 at 14:30; Stop 04/26/19 at 14:31; Status DC Sodium Chloride 1,000 ml @ 250 mls/hr Q4H IV Last administered on 04/26/19at 20:07; Start 04/26/19 at 16:12; Stop 04/26/19 at 23:58; Status DC Insulin Human Regular 150 unit/ Sodium Chloride 151.5 ml @ 0 mls/hr CONT PRN PRN IV PER PROTOCOL Last administered on 04/26/19at 20:31; Start 04/26/19 at 16:15; Stop 04/27/19 at 06:33; Status DC Potassium Chloride/Water 100 ml @ 100 mls/hr PRN Q1HR PRN IV SEE COMMENTS; Start 04/26/19 at 16:15 Potassium Chloride/Water 100 ml @ 100 mls/hr PRN Q1HR PRN IV SEE COMMENTS; Start 04/26/19 at 16:15 Potassium Chloride/Water 100 ml @ 100 mls/hr PRN Q1HR PRN IV SEE COMMENTS; Start 04/26/19 at 16:15 Morphine Sulfate (Morphine Sulfate) 2 mg STK-MED ONCE .ROUTE ; Start 04/26/19 at 16:37; Stop 04/26/19 at 16:37; Status DC Sodium Phosphate 10 mmol/Dextrose 253.3333 ml @ 61.688 m... Q4HRS IV Last administered on 04/27/19at 01:46; Start 04/26/19 at 20:30; Stop 04/27/19 at 03:59; Status DC Sodium Chloride 1,000 ml @ 250 mls/hr PRN Q4HRS PRN IV SEE I/O RECORD Last administered on 04/26/19at 20:31; Start 04/26/19 at 20:30; Stop 04/26/19 at 23:58; Status DC Dextrose/Sodium Chloride 1,000 ml @ 250 mls/hr Q4H IV Last administered on at 11:03; Start 04/27/19 at 00:00; Stop 04/27/19 at 13:17; Status DC Potassium Chloride/Water 100 ml @ 100 mls/hr Q1H IV Last administered on 04/27/19at 02:22; Start 04/27/19 at 01:15; Stop 04/27/19 at 03:14; Status DC Potassium Chloride/Water 100 ml @ 100 mls/hr Q1H IV Last administered on 04/27/19at 10:50; Start 04/27/19 at 06:15; Stop 04/27/19 at 10:14; Status DC Sodium Phosphate 20 mmol/Dextrose 256.6667 ml @ 64.167 m... 1X ONCE IV Last administered on 04/27/19at 06:31; Start 04/27/19 at 06:15; Stop 04/27/19 at 10:14; Status DC Insulin Human Regular 150 unit/ Sodium Chloride 151.5 ml @ 0 mls/hr CONT PRN IV SEE I/O RECORD; Start 04/27/19 at 06:30; Stop 04/28/19 at 16:43; Status DC Lactobacillus Rhamnosus (Culturelle) 1 cap BID PO Last administered on 04/30/19at 08:41; Start 04/27/19 at 12:00 Dextrose/Sodium Chloride 1,000 ml @ 250 mls/hr Q4H IV Last administered on 04/27/19at 19:17; Start 04/27/19 at 13:15; Stop 04/29/19 at 18:59; Status DC Sodium Phosphate 40 mmol/Dextrose 263.3333 ml @ 62.5 mls/hr 1X ONCE IV Last administered on 04/27/19at 14:35; Start 04/27/19 at 13:30; Stop 04/27/19 at 17:42; Status DC Insulin Human Lispro (HumaLOG) 15 units TIDAC SQ ; Start 04/27/19 at 16:30; Stop 04/27/19 at 13:47; Status DC Insulin Glargine (Lantus Syringe) 30 unit QHS SQ Last administered on 04/28/19at 22:14; Start 04/27/19 at 13:45; Stop 04/29/19 at 14:16; Status DC Insulin Human Lispro (HumaLOG) 0-9 UNITS TIDWMEALS SQ Last administered on 04/30/19at 08:48; Start 04/27/19 at 17:00 Dextrose (Dextrose 50%-Water Syringe) 12.5 gm PRN Q15MIN PRN IV SEE COMMENTS; Start 04/27/19 at 13:45 Dextrose 250 ml PRN Q15MIN PRN IV SEE COMMENTS; Start 04/27/19 at 13:45; Status UNV Glyburide (Diabeta) 5 mg BIDWMEALS PO Last administered on 04/30/19at 08:41; S tart 04/27/19 at 17:00 Insulin Human Lispro (HumaLOG) 15 units TIDWMEALS SQ Last administered on 04/30/19at 08:47; Start 04/27/19 at 17:00 Potassium Chloride/Water 100 ml @ 100 mls/hr Q1HR IV Last administered on 04/27/19at 17:43; Start 04/27/19 at 14:00; Stop 04/27/19 at 17:59; Status DC Insulin Human Lispro (HumaLOG) 15 units 1X ONCE SQ Last administered on 04/27/19at 14:57; Start 04/27/19 at 14:45; Stop 04/27/19 at 14:46; Status DC Potassium Chloride (Klor-Con) 40 meq 1X ONCE PO Last administered on 04/29/19at 15:17; Start 04/29/19 at 14:15; Stop 04/29/19 at 14:17; Status DC Potassium Chloride (Klor-Con) 20 meq [id number] PO Last administered on 04/30/19at 08:42; Start 04/30/19 at 08:00 Insulin Glargine (Lantus Syringe) 35 unit QHS SQ Last administered on 04/29/19at 21:02; Start 04/29/19 at 21:00 Cefdinir (Omnicef) 300 mg BID PO Last administered on 04/30/19at 08:41; Start at 09:00 Zolpidem Tartrate (Ambien) 5 mg PRN QHS PRN PO INSOMNIA; Start 04/29/19 at 19:00 Acetaminophen (Tylenol) 500 mg PRN Q6HRS PRN PO MILD PAIN / TEMP; Start 04/29/19 at 19:00 Acetaminophen/ Codeine Phosphate (Tylenol #3) 1 tab PRN Q6HRS PRN PO MODERATE PAIN; Start 04/29/19 at 19:00 Ondansetron HCl (Zofran) 4 mg PRN Q6HRS PRN IVP NAUSEA/VOMITING; Start 04/29/19 at 19:00 Active Scripts Active Reported Januvia (Sitagliptin Phosphate) 100 Mg Tablet 1 Tab PO DAILY Vitals/I & O Vital Sign - Last 24 Hours 04/29/19 04/29/19 04/29/19 04/29/19 11:00 15:00 19:00 20:05 Temp 98.4 98.4 98.3 98.4 98.4 98.3 Pulse 86 74 94 Resp 17 17 17 B/P (MAP) 117/84 (95) 117/75 (89) 140/80 (100) Pulse Ox 96 98 99 O2 Delivery Room Air Room Air Room Air Room Air 04/29/19 04/30/19 04/30/19 23:00 03:00 07:00 Temp 98.0 97.7 97.9 98.0 97.7 97.9 Pulse 77 65 70 Resp 17 17 16 B/P (MAP) 100/52 (68) 108/48 (68) 102/50 (67) Pulse Ox 94 91 99 O2 Delivery Room Air Room Air Room Air Intake and Output 04/29/19 04/29/19 04/30/19 15:00 23:00 07:00 Intake Total 0 ml 0 ml Balance 0 ml 0 ml JOHN WARREN MD Apr 30, 2019 08:54
[2019-04-30] MEDS ORDERED: POTASSIUM CHLORIDE 20 MEQ TABLET.ER. PO ONE (09:00)
[2019-04-30] MEDS ORDERED: CEFDINIR 300 MG CAPSULE PO SCH (09:00)
[2019-04-30 11:00] VITALS: BP 137/76
--- NOTE | 2019-04-30 13:53 | PDOC3 ---
Discharge Summary Date of Admission: Apr 26, 2019 Date of Discharge: Apr 30, 2019 Follow-Up: 3-5 days Admitting Diagnosis comment: discharge dx 04/30/19 Pt was seen and examined bedside K LOW His anion gap has decreased to 12. feels better. Consulted nephrology JESUS RN HYDRATION INSULIN DKA PROTOCOL INC LANTUS TO 35 UNITS SQ HS ADA DIET 40 meq kcl po x 1 now 26 min pt exam, chart review d/c planning , > 50% of time spent with exam, chart review, pt care coordination Vitals Vitals Vital Signs Date Time Temp Pulse Resp B/P (MAP) Pulse Ox O2 Delivery O2 Flow Rate FiO2 04/30/19 07:00 97.9 70 16 102/50 (67) 99 Room Air 97.9 Physical Exam General: Alert, Oriented X3, Cooperative, No acute distress Heart: Regular rate, Normal S1, Normal S2 Lungs: Clear Abdomen: Normal bowel sounds, Soft, No tenderness Extremities: No clubbing Skin: No rashes, No breakdown FINAL DIAGNOSIS Problems Medical Problems: (1) Dehydration Status: Acute (2) Diabetic ketoacidosis Status: Acute Brief Hospital Course Mr. Laurent is a 23 old [sex] who presented with [ ] CONDITION AT DISCHARGE: Improved Discharge Medications Current Medications Sodium Chloride 1,000 ml @ 1,000 mls/hr 1X ONCE IV Last administered on 04/26/19at 11:00; Start 04/26/19 at 10:45; Stop 04/26/19 at 11:44; Status DC Sodium Chloride 1,000 ml @ 1,000 mls/hr 1X ONCE IV Last administered on 04/26/19at 11:56; Start 04/26/19 at 10:45; Stop 04/26/19 at 11:44; Status DC Insulin Human Regular 150 ml @ 0 mls/hr 1X ONCE IV Last administered on 04/26/19at 11:00; Start 04/26/19 at 10:45; Stop 04/26/19 at 10:46; Status DC Morphine Sulfate (Morphine Sulfate) 4 mg 1X ONCE IV Last administered on 04/26/19at 11:20; Start 04/26/19 at 10:45; Stop 04/26/19 at 10:46; Status DC Sodium Chloride 1,000 ml @ 1,000 mls/hr 1X ONCE IV Last administered on 04/26/19at 12:44; Start 04/26/19 at 12:00; Stop 04/26/19 at 12:59; Status DC Sodium Chloride 1,000 ml @ 1,000 mls/hr 1X ONCE IV Last administered on 04/26/19at 13:26; Start 04/26/19 at 12:15; Stop 04/26/19 at 13:14; Status DC Ceftriaxone Sodium (Rocephin) 1 gm Q24H IVP Last administered on 04/29/19at 16:33; Start 04/27/19 at 15:00; Stop 04/29/19 at 17:43; Status DC Ceftriaxone Sodium (Rocephin) 1 gm ONCE ONCE IVP Last administered on 04/04 11/19at 15:02; Start 04/26/19 at 14:30; Stop 04/26/19 at 14:31; Status DC Sodium Chloride 1,000 ml @ 250 mls/hr Q4H IV Last administered on 04/26/19at 20:07; Start 04/26/19 at 16:12; Stop 04/26/19 at 23:58; Status DC Insulin Human Regular 150 unit/ Sodium Chloride 151.5 ml @ 0 mls/hr CONT PRN PRN IV PER PROTOCOL Last administered on 04/26/19at 20:31; Start 04/26/19 at 16:15; Stop 04/27/19 at 06:33; Status DC Potassium Chloride/Water 100 ml @ 100 mls/hr PRN Q1HR PRN IV SEE COMMENTS; Start 04/26/19 at 16:15 Potassium Chloride/Water 100 ml @ 100 mls/hr PRN Q1HR PRN IV SEE COMMENTS; Start 04/26/19 at 16:15 Potassium Chloride/Water 100 ml @ 100 mls/hr PRN Q1HR PRN IV SEE COMMENTS; Start 04/26/19 at 16:15 Morphine Sulfate (Morphine Sulfate) 2 mg STK-MED ONCE .ROUTE ; Start 04/26/19 at 16:37; Stop 04/26/19 at 16:37; Status DC Sodium Phosphate 10 mmol/Dextrose 253.3333 ml @ 61.688 m... Q4HRS IV Last administered on 04/27/19at 01:46; Start 04/26/19 at 20:30; Stop 04/27/19 at 03:59; Status DC Sodium Chloride 1,000 ml @ 250 mls/hr PRN Q4HRS PRN IV SEE I/O RECORD Last administered on 04/26/19at 20:31; Start 04/26/19 at 20:30; Stop 04/26/19 at 23:58; Status DC Dextrose/Sodium Chloride 1,000 ml @ 250 mls/hr Q4H IV Last administered on 04/27/19at 11:03; Start 04/27/19 at 00:00; Stop 04/27/19 at 13:17; Status DC Potassium Chloride/Water 100 ml @ 100 mls/hr Q1H IV Last administered on 04/27/19at 02:22; Start 04/27/19 at 01:15; Stop 04/27/19 at 03:14; Status DC Potassium Chloride/Water 100 ml @ 100 mls/hr Q1H IV Last administered on 04/27/19at 10:50; Start 04/27/19 at 06:15; Stop 04/27/19 at 10:14; Status DC Sodium Phosphate 20 mmol/Dextrose 256.6667 ml @ 64.167 m... 1X ONCE IV Last administered on 04/27/19at 06:31; Start 04/27/19 at 06:15; Stop 04/27/19 at 10:14; Status DC Insulin Human Regular 150 unit/ Sodium Chloride 151.5 ml @ 0 mls/hr CONT PRN IV SEE I/O RECORD; Start 04/27/19 at 06:30; Stop 04/28/19 at 16:43; Status DC Lactobacillus Rhamnosus (Culturelle) 1 cap BID PO Last administered on 04/30/19 at 08:41; Start 04/27/19 at 12:00 Dextrose/Sodium Chloride 1,000 ml @ 250 mls/hr Q4H IV Last administered on 04/27/19at 19:17; Start 04/27/19 at 13:15; Stop 04/29/19 at 18:59; Status DC Sodium Phosphate 40 mmol/Dextrose 263.3333 ml @ 62.5 mls/hr 1X ONCE IV Last administered on 04/27/19at 14:35; Start 04/27/19 at 13:30; Stop 04/27/19 at 17:42; Status DC Insulin Human Lispro (HumaLOG) 15 units TIDAC SQ ; Start 04/27/19 at 16:30; Stop 04/27/19 at 13:47; Status DC Insulin Glargine (Lantus Syringe) 30 unit QHS SQ Last administered on 04/28/19at 22:14; Start 04/27/19 at 13:45; Stop 04/29/19 at 14:16; Status DC Insulin Human Lispro (HumaLOG) 0-9 UNITS TIDWMEALS SQ Last administered on 04/30/19at 13:04; Start 04/27/19 at 17:00 Dextrose (Dextrose 50%-Water Syringe) 12.5 gm PRN Q15MIN PRN IV SEE COMMENTS; Start 04/27/19 at 13:45 Dextrose 250 ml PRN Q15MIN PRN IV SEE COMMENTS; Start 04/27/19 at 13:45; Status UNV Glyburide (Diabeta) 5 mg BIDWMEALS PO Last administered on 04/30/19at 08:41; Start 04/27/19 at 17:00 Insulin Human Lispro (HumaLOG) 15 units TIDWMEALS SQ Last administered on 04/30/19at 13:06; Start 04/27/19 at 17:00 Potassium Chloride/Water 100 ml @ 100 mls/hr Q1HR IV Last administered on 04/27/19at 17:43; Start 04/27/19 at 14:00; Stop 04/27/19 at 17:59; Status DC Insulin Human Lispro (HumaLOG) 15 units 1X ONCE SQ Last administered on 04/27/19at 14:57; Start 04/27/19 at 14:45; Stop 04/27/19 at 14:46; Status DC Potassium Chloride (Klor-Con) 40 meq 1X ONCE PO Last administered on 04/29/19at 15:17; Start 04/29/19 at 14:15; Stop 04/29/19 at 14:17; Status DC Potassium Chloride (Klor-Con) 20 meq DAILYWBKFT PO Last administered on 04/30/19at 08:42; Start 04/30/19 at 08:00 Insulin Glargine (Lantus Syringe) 35 unit QHS SQ Last administered on 04/29/19at 21:02; Start 04/29/19 at 21:00 Cefdinir (Omnicef) 300 mg BID PO Last administered on 04/30/19at 08:41; Start 04/30/19 at 09:00 Zolpidem Tartrate (Ambien) 5 mg PRN QHS PRN PO INSOMNIA; Start 04/29/19 at 19:00 Acetaminophen (Tylenol) 500 mg PRN Q6HRS PRN PO MILD PAIN / TEMP; Start 04/29/19 at 19:00 Acetaminophen/ Codeine Phosphate (Tylenol #3) 1 tab PRN Q6HRS PRN PO MODERATE PAIN; Start 04/29/19 at 19:00 Ondansetron HCl (Zofran) 4 mg PRN Q6HRS PRN IVP NAUSEA/VOMITING; Start 04/29/19 at 19:00 Potassium Chloride (Klor-Con) 40 meq 1X ONCE PO Last administered on 04/30/19at 12:58; Start 04/30/19 at 09:00; Stop 04/30/19 at 09:01; Status DC Active Scripts Active Reported Januvia (Sitagliptin Phosphate) 100 Mg Tablet 1 Tab PO DAILY Vital Signs Vital Signs Date Time Temp Pulse Resp B/P (MAP) Pulse Ox O2 Delivery O2 Flow Rate FiO2 04/30/19 11:00 97.5 80 137/76 (96) 99 Room Air 16.0 97.5 04/30/19 07:00 16 Labs Laboratory Tests Test 04/28/19 16:44 04/28/19 21:34 04/29/19 07:17 04/29/19 11:23 Glucose (Fingerstick) 275 mg/dL (70-99) 213 mg/dL (70-99) 343 mg/dL (70-99) 305 mg/dL (70-99) Test 04/29/19 16:43 04/29/19 17:50 04/29/19 19:30 04/29/19 20:56 Glucose (Fingerstick) 111 mg/dL (70-99) 272 mg/dL (70-99) Urine Color Yellow Urine Clarity Clear Urine pH 6.5 Urine Specific Cascade 1.015 Urine Protein Negative mg/dL (NEG-TRACE) Urine Glucose (UA) Negative mg/dL (NEG) Urine Ketones (Stick) Negative mg/dL (NEG) Urine Blood Negative (NEG) Urine Nitrite Negative (NEG) Urine Bilirubin Negative (NEG) Urine Urobilinogen Dipstick 1.0 mg/dL (0.2 mg/dL) Urine Leukocyte Esterase Negative (NEG) Urine RBC 0 /HPF (0-2) Urine WBC Occ /HPF (0-4) Urine Squamous Epithelial Cells Occ /LPF Urine Bacteria 0 /HPF (0-FEW) Urine Opiates Screen Neg (NEG) Urine Methadone Screen Neg (NEG) Urine Barbiturates Neg (NEG) Urine Phencyclidine Screen Neg (NEG) Urine Amphetamine/Methamphetamine Neg (NEG) Urine Benzodiazepines Screen Neg (NEG) Urine Cocaine Screen Neg (NEG) Urine Cannabinoids Screen Neg (NEG) Urine Ethyl Alcohol Neg (NEG) Sodium Level 138 mmol/L (136-145) Potassium Level 3.1 mmol/L (3.5-5.1) Chloride Level 104 mmol/L (98-107) Carbon Dioxide Level 27 mmol/L (21-32) Anion Gap 7 (6-14) Blood Urea Nitrogen 10 mg/dL (8-26) Creatinine 0.9 mg/dL (0.7-1.3) Estimated GFR (Cockcroft-Gault) 127.7 Glucose Level 248 mg/dL (70-99) Calcium Level 8.6 mg/dL (8.5-10.1) Test 04/30/19 05:05 04/30/19 07:46 04/30/19 11:45 Sodium Level 141 mmol/L (136-145) Potassium Level 3.2 mmol/L (3.5-5.1) Chloride Level 106 mmol/L (98-107) Carbon Dioxide Level 23 mmol/L (21-32) Anion Gap 12 (6-14) Blood Urea Nitrogen 11 mg/dL (8-26) Creatinine 0.8 mg/dL (0.7-1.3) Estimated GFR (Cockcroft-Gault) 146.3 Glucose Level 313 mg/dL (70-99) Calcium Level 8.5 mg/dL (8.5-10.1) Glucose (Fingerstick) 325 mg/dL (70-99) 242 mg/dL (70-99) Laboratory Tests Test 04/29/19 16:43 04/29/19 17:50 04/29/19 19:30 04/29/19 20:56 Glucose (Fingerstick) 111 mg/dL (70-99) 272 mg/dL (70-99) Urine Color Yellow Urine Clarity Clear Urine pH 6.5 Urine Specific Cascade 1.015 Urine Protein Negative mg/dL (NEG-TRACE) Urine Glucose (UA) Negative mg/dL (NEG) Urine Ketones (Stick) Negative mg/dL (NEG) Urine Blood Negative (NEG) Urine Nitrite Negative (NEG) Urine Bilirubin Negative (NEG) Urine Urobilinogen Dipstick 1.0 mg/dL (0.2 mg/dL) Urine Leukocyte Esterase Negative (NEG) Urine RBC 0 /HPF (0-2) Urine WBC Occ /HPF (0-4) Urine Squamous Epithelial Cells Occ /LPF Urine Bacteria 0 /HPF (0-FEW) Urine Opiates Screen Neg (NEG) Urine Methadone Screen Neg (NEG) Urine Barbiturates Neg (NEG) Urine Phencyclidine Screen Neg (NEG) Urine Amphetamine/Methamphetamine Neg (NEG) Urine Benzodiazepines Screen Neg (NEG) Urine Cocaine Screen Neg (NEG) Urine Cannabinoids Screen Neg (NEG) Urine Ethyl Alcohol Neg (NEG) Sodium Level 138 mmol/L (136-145) Potassium Level 3.1 mmol/L (3.5-5.1) Chloride Level 104 mmol/L (98-107) Carbon Dioxide Level 27 mmol/L (21-32) Anion Gap 7 (6-14) Blood Urea Nitrogen 10 mg/dL (8-26) Creatinine 0.9 mg/dL (0.7-1.3) Estimated GFR (Cockcroft-Gault) 127.7 Glucose Level 248 mg/dL (70-99) Calcium Level 8.6 mg/dL (8.5-10.1) Test 04/30/19 05:05 04/30/19 07:46 04/30/19 11:45 Sodium Level 141 mmol/L (136-145) Potassium Level 3.2 mmol/L (3.5-5.1) Chloride Level 106 mmol/L (98-107) Carbon Dioxide Level 23 mmol/L (21-32) Anion Gap 12 (6-14) Blood Urea Nitrogen 11 mg/dL (8-26) Creatinine 0.8 mg/dL (0.7-1.3) Estimated GFR (Cockcroft-Gault) 146.3 Glucose Level 313 mg/dL (70-99) Calcium Level 8.5 mg/dL (8.5-10.1) Glucose (Fingerstick) 325 mg/dL (70-99) 242 mg/dL (70-99) Allergies Allergies Coded Allergies Type Severity Reaction Last Updated Verified No Known Drug Allergies 02/17/19 No Disposition/Orders: D/C to Home Patient Instructions d/c planning 26 min JOHN WARREN MD Apr 30, 2019 13:53
[2019-04-30] MEDS ORDERED: CEFD300C PO (13:56)
[2019-04-30] MEDS ORDERED: INSU100I11 SQ (13:56)
[2019-04-30] MEDS ORDERED: ACET500T68 PO (13:56)
[2019-04-30] MEDS ORDERED: POTA20TA4 PO (13:56)
[2019-04-30] MEDS ORDERED: INSU100V8 SQ (13:56)
--- NOTE | 2019-04-30 14:00 | DISCH ---
DISCHARGE INSTRUCTIONS Condition on Discharge Condition on Discharge: Stable Activity After Discharge Activity Instructions for Disc: Activity as tolerated Driving Instructions after Dis: Do not drive today Diet after Discharge Diet after Discharge: Diabetic No Calorie Level Checks after Discharge Checks after discharge: Check blood press - daily Contacting the DR. after DC Call your doctor for: If your condition worsens JOHN WARREN MD Apr 30, 2019 13:59
--- NOTE | 2019-04-30 16:38 | NUR ---
Discharge Note: JUANA PATTON [facility] Discharge instructions and discharge home medications reviewed with Patient and a copy given. All questions have been answered and understanding verbalized. The following instructions and handouts were given: Discharge Instructions, Prescriptions, Extensive Teaching for Diabetes Education Discontinued lines and drains: PIV removed, Catheter intact. Patient discharged to Home with Self-Care via Private Vehicle
[2019-05-01 03:12] LABS: HEMOGLOBIN A1C >15.5 % (4.8-5.6)
== END 2019-04-30 15:30 | disposition home or self-care (01) | DRG 637 ==
LOC: ER 10:25 → ED HOLD 13:28 → 1 WEST ICU 15:03 → 5 SOUTH 04-27 15:55
PROVIDERS: ADMIT Internal Medicine; ATTEND Internal Medicine
DX: E11.10 Type 2 diabetes mellitus with ketoacidosis without coma (principal); R65.11 Systemic inflammatory response syndrome (SIRS) of non-infectious origin with acute organ dysfunction; N17.9 Acute kidney failure, unspecified; E86.0 Dehydration; D72.829 Elevated white blood cell count, unspecified; E87.5 Hyperkalemia; Z91.19 Patient's noncompliance with other medical treatment and regimen; Z83.3 Family history of diabetes mellitus; Z91.14 Patient's other noncompliance with medication regimen
CPT/HCPCS: 36415; 36600; 71045; 74018; 80048; 80053; 80307; 81001; 82010; 82805; 82962; 83036; 83605; 83690; 83735; 83880; 84100; 84484; 85007; 85025; 85027; 85379; 87040; 93005; 96374; 96375; J0696; J1815; J2270; J3480; J7030; J7042; 99291-25; G0378

== ENCOUNTER 2021-09-18 10:29 | Emergency (ER) | payer SELFPAY ==
[~2021-09-18] VITALS: Ht 188 cm; Wt 99.0 kg
[~2021-09-18 10:29] MED LIST changes: +ACET500T68 PO; +CEFD300C PO; +INSU100I11 SQ; +INSU100V8 SQ; +LISI10TA16 PO; -LISI10TA2 PO; +POTA-121 PO; +SITA100T PO
[2021-09-18] MEDS ORDERED: IV NORMAL SALINE 1000ML BAG 1,000 ML IV ONE (11:00)
[2021-09-18 11:11] LABS: BASO % 1 % (0-3); EOS # 0.1 x10^3/uL (0.0-0.7); EOS % 4 % (0-3); HEMATOCRIT 46.8 % (39.0-53.0); HEMOGLOBIN 15.2 g/dL (13.0-17.5); LYMPH # 1.4 x10^3/uL (1.0-4.8); LYMPH % 41 % (24-48); MEAN CORPUSCULAR HEMOGLOBIN 27 pg (25-35); MEAN CORPUSCULAR HGB CONC 32 g/dL (31-37); MEAN CORPUSCULAR VOLUME 82 fL (79-100); MONO # 0.3 x10^3/uL (0.0-1.1); MONO % 7 % (0-9); NEUT # 1.6 x10^3/uL (1.8-7.7); NEUT % 46 % (31-73); PLATELET COUNT 294 x10^3/uL (140-400); RED BLOOD COUNT 5.71 x10^6/uL (4.30-5.70); RED CELL DISTRIBUTION WIDTH 12.6 % (11.5-14.5); WHITE BLOOD COUNT 3.4 x10^3/uL (4.0-11.0)
[2021-09-18 11:27] LABS: CALCIUM 9.4 mg/dL (8.5-10.1); GFR 110.2; POTASSIUM 3.9 mmol/L (3.5-5.1)
--- NOTE | 2021-09-18 12:22 | PHYS DOC ---
Past Medical History Past Medical History: Diabetes-Type II Past Surgical History: No Surgical History Smoking Status: Never Smoker Alcohol Use: None Drug Use: None General Adult EDM: Chief Complaint: HYPERGLYCEMIA HPI: HPI: Patient is a 26 year old male who presents with elevated blood sugar. Patient states he was getting an evaluation at work and was told his blood sugar was in the 300s. Patient was directed to come to the emergency room for further management. Patient has a history of diabetes and currently takes Metformin. Denies shortness of breath, chest pain, nausea/vomiting, abdominal pain. Patient has no other health history. Review of Systems: Review of Systems: ROS At least 10 ROS systems have been reviewed and are negative except as documented in the HPI. General: Negative except as outlined in HPI above. Skin: Negative except as outlined in HPI above. HEENT: Negative except as outlined in HPI above. Neck: Negative except as outlined in HPI above. Respiratory: Negative except as outlined in HPI above.. Cardiovascular: Negative except as outlined in HPI above. Abdomen: Negative except as outlined in HPI above. : Negative except as outlined in HPI above. Back/MSK: Negative except as outlined in HPI above. Neuro: Negative except as outlined in HPI above. Psych: Negative except as outlined in HPI above. Heart Score: C/O Chest Pain: No Risk Factors: Risk Factors: DM, Current or recent (<one month) smoker, HTN, HLP, family history of CAD, obesity. Risk Scores: Score 0 - 3: 2.5% MACE over next 6 weeks - Discharge Home Score 4 - 6: 20.3% MACE over next 6 weeks - Admit for Clinical Observation Score 7 - 10: 72.7% MACE over next 6 weeks - Early Invasive Strategies Current Medications: Current Medications Medications (Trade) Dose Ordered Sig/Osbaldo Start Time Stop Time Status Last Admin Dose Admin Sodium Chloride 1,000 ml @ 1,000 mls/hr 1X ONCE 09/18/21 11:00 09/18/21 11:59 DC 09/18/21 11:04 1,000 MLS/HR Allergies: Allergies: Allergies Coded Allergies Type Severity Reaction Last Updated Verified No Known Drug Allergies 09/18/21 No Physical Exam: PE: Constitutional: Well developed, well nourished, no acute distress, non-toxic appearance. [] HENT: Normocephalic, atraumatic, bilateral external ears normal, oropharynx moist, no oral exudates, nose normal. [] Eyes: PERRLA, EOMI, conjunctiva normal, no discharge. [] Neck: Normal range of motion, no tenderness, supple, no stridor. [] Cardiovascular:Heart rate regular rhythm, no murmur [] Lungs & Thorax: Bilateral breath sounds clear to auscultation [] Abdomen: Bowel sounds normal, soft, no tenderness, no masses, no pulsatile masses. [] Skin: Warm, dry, no erythema, no rash. [] Back: No tenderness, no CVA tenderness. [] Extremities: No tenderness, no cyanosis, no clubbing, ROM intact, no edema. [] Neurologic: Alert and oriented X 3, normal motor function, normal sensory function, no focal deficits noted. [] Psychologic: Affect normal, judgement normal, mood normal. [] Current Patient Data: Labs: Laboratory Tests Test 09/18/21 10:45 09/18/21 10:58 Glucose (Fingerstick) 403 mg/dL (70-99) H White Blood Count 3.4 x10^3/uL (4.0-11.0) L Red Blood Count 5.71 x10^6/uL (4.30-5.70) H Hemoglobin 15.2 g/dL (13.0-17.5) Hematocrit 46.8 % (39.0-53.0) Mean Corpuscular Volume 82 fL (79-100) Mean Corpuscular Hemoglobin 27 pg (25-35) Mean Corpuscular Hemoglobin Concent 32 g/dL (31-37) Red Cell Distribution Width 12.6 % (11.5-14.5) Platelet Count 294 x10^3/uL (140-400) Neutrophils (%) (Auto) 46 % (31-73) Lymphocytes (%) (Auto) 41 % (24-48) Monocytes (%) (Auto) 7 % (0-9) Eosinophils (%) (Auto) 4 % (0-3) H Basophils (%) (Auto) 1 % (0-3) Neutrophils # (Auto) 1.6 x10^3/uL (1.8-7.7) L Lymphocytes # (Auto) 1.4 x10^3/uL (1.0-4.8) Monocytes # (Auto) 0.3 x10^3/uL (0.0-1.1) Eosinophils # (Auto) 0.1 x10^3/uL (0.0-0.7) Basophils # (Auto) 0.0 x10^3/uL (0.0-0.2) Sodium Level 136 mmol/L (136-145) Potassium Level 3.9 mmol/L (3.5-5.1) Chloride Level 95 mmol/L (98-107) L Carbon Dioxide Level 31 mmol/L (21-32) Anion Gap 10 (6-14) Blood Urea Nitrogen 9 mg/dL (8-26) Creatinine 1.0 mg/dL (0.7-1.3) Estimated GFR (Cockcroft-Gault) 110.2 Glucose Level 387 mg/dL (70-99) H Calcium Level 9.4 mg/dL (8.5-10.1) Laboratory Tests 09/18/21 10:58 Laboratory Tests 09/18/21 10:58 Vital Signs: Vital Signs Date Time Temp Pulse Resp B/P (MAP) Pulse Ox O2 Delivery O2 Flow Rate FiO2 09/18/21 10:35 98.3 98 16 146/72 (96) 100 98.3 EKG: EKG: [] Radiology/Procedures: Radiology/Procedures: [] Course & Med Decision Making: Course & Med Decision Making Pertinent Labs and Imaging studies reviewed. (See chart for details) [] 26-year-old male presents with medical clearance from work. Patient was told his blood sugar was elevated at a medical screening at work. Patient currently takes Metformin. Work-up in ER consisted of labs, urinalysis. Patient given NS bolus. Blood sugar 387. All labs unremarkable. Denies all symptoms. Educated patient on diet. Advised patient to follow back up with his PCP for further testing and possible medication changes to help control his blood sugars. Heath Disclaimer: Heath Disclaimer: This electronic medical record was generated, in whole or in part, using a voice recognition dictation system. Departure Departure Impression: Primary Impression: Hyperglycemia due to type 2 diabetes mellitus Qualified Codes: E11.65 - Type 2 diabetes mellitus with hyperglycemia; Z79.4 - penitentiary (current) use of insulin Disposition: 01 HOME / SELF CARE / HOMELESS Condition: STABLE Referrals: NO PCP (PCP) Patient Instructions: Hyperglycemia, [id number] Additional Instructions: You are seen in the emergency room for medical clearance for your blood sugar. You were given fluids. All of your labs were unremarkable. Your blood sugar was elevated. Please call your PCP to make a follow-up appointment for further management of your diabetes. Return to the emergency room if you have worsening symptoms or concerns such as chest pain, shortness of breath, nausea and vomiting. EMERGENCY DEPARTMENT GENERAL DISCHARGE INSTRUCTIONS Thank you for coming to [facility] Emergency Department (ED) today and trusting us with you care. We trust that you had a positive experience in our Emergency Department. If you wish to speak to the department management, you may call the Director at [phone]. YOUR FOLLOW UP INSTRUCTIONS ARE FOLLOWS: 1. Do you have a private Doctor? If you do not have a private doctor, please ask for a resource list of physicians or clinics that may be able to assist you with follow up care. 2. The Emergency Physicain has interpreted your x-rays. The X-Ray specialist will also review them. If there is a change in the findings, you will be notified in 48 hours when at all possible. 3. A lab test or culture has been done, your results will be reviewed and you will be notified if you need a change in treatment. ADDITIONAL INSTRUCTIONS AND INFORMATION: 1. Your care today has been supervised by a physician who is specially trained in emergency care. Many problems require more than one evaluation for a complete diagnosis and treatment. We recommend that you schedule your follow up appointment as recommended to ensure complete treatment of you illness or injury. If you are unable to obtain follow up care and continue to have a problem, or if your condition worsens, we recommend that you return to the ED. 2. We are not able to safely determine your condition over the phone nor are we able to give sound medical advice over the phone. For these safety reasons, if you call for medical advice we will ask you to come to the ED for further evaluation. 3. If you have any questions regarding these discharge instructions please call the ED at [phone]. SAFETY INFORMATION: In the interest of safety, wellness, and injury prevention; we encourage you to wear your sealbelt, if you smoke; quite smoking, and we encourage family to use a protective helmet for bicycling and other sporting events that present an increased risk for head injury. IF YOUR SYMPTOMS WORSEN OR NEW SYMPTOMS DEVELOP, OR YOU HAVE CONCERNS ABOUT YOUR CONDITION; OR IF YOUR CONDITION WORSENS WHILE YOU ARE WAITING FOR YOUR FOLLOW UP APPOINTMENT; EITHER CONTACT YOUR PRIMARY CARE DOCTOR, THE PHYSICIAN WHOSE NAME AND NUMBER YOU WERE GIVEN, OR RETURN TO THE ED IMMEDIATELY. ONI MOE APRN Sep 18, 2021 12:22
[2021-09-18 12:50] LABS: BILIRUBIN,URINE NEGATIVE (NEG); CLARITY,URINE CLEAR; COLOR,URINE YELLOW; NITRITE,URINE NEGATIVE (NEG); PROTEIN,URINE NEGATIVE (NEG-TRACE)
[2021-09-18 13:00] VITALS: BP 134/78
[2021-09-18 13:05] LABS: BACTERIA,URINE 0 /HPF (0-FEW); RBC,URINE 0 /HPF (0-2); WBC,URINE 0 /HPF (0-4)
== END 2021-09-18 13:00 | disposition home or self-care (01) ==
LOC: ER 10:29
DX: E11.65 Type 2 diabetes mellitus with hyperglycemia (principal); Z79.4 Long term (current) use of insulin
CPT/HCPCS: 36415; 80048; 81001; 82962; 85025; 96360; 99283; J7030